=== PATIENT | female | born 1960 | race Caucasian/White ===

== ENCOUNTER 2016-11-07 06:58 | Inpatient (IN) | payer MEDICARE, MEDICAID ==
[~2016-11-07] VITALS: Ht 160 cm; Wt 90.8 kg
[~2016-11-07 06:58] MED LIST: ADDERALL20 MG PO; BREO IH; DALIRESP500 MCG PO; KLONOPIN 1MG1 MG PO; LEVAQUIN 5500 MG/TA1 PO; NEURONTIN300 MG/CAP PO; PERCOCET 325 MG1 TAB PO; PREDNISONE20 MG PO; PRILOSEC 20MG20 MG PO; PROAIR HFA0.09 MG/AC IH; PROZAC40 MG PO; VALIUM 5MG T5 MG/TAB PO; VENTOLIN0.09 MG IH; ZOFRAN 4MG T4 MG/TAB PO
[2016-11-07 07:33] LABS: BASO % 0.4 % (0.0-2.0); EOS # 0.1 (0.0-0.7); EOS % 0.7 % (0-4.0); GRAN % 86.3 % (42.2-75.2); HEMOGLOBIN 12.3 g/dl (12.5-16.0); LYMPH # 0.4 (1.2-3.4); LYMPH % 5.4 % (20.0-51.0); MEAN CELL VOLUME 99 fl (80.0-100.0); MEAN CORPUSCULAR HEMOGLOBIN 34 pg (27.0-31.0); MEAN CORPUSCULAR HGB CONC 35 g/dl (33.0-37.0); MONO # 0.4 (0.1-0.6); MONO % 5.5 % (1.7-9.3); PLATELET COUNT 107 K/mm3 (130-400); RED BLOOD COUNT 3.58 M/mm3 (4.10-5.30); REDCELL DISTRIBUTION WIDTH-CV 13.4 % (11.5-14.5); WHITE BLOOD COUNT 6.9 K/mm3 (4.8-10.8)
[2016-11-07 07:45] LABS: HEMATOCRIT 35.4 % (37.0-47.0)
[2016-11-07 08:01] LABS: PH 5 (5-8); SQUAMOUS EPITHELIAL 0-2 /hpf; URINE APPEARANCE Hazy; URINE BACTERIA Rare /hpf; URINE BILIRUBIN Negative (NEGATIVE); URINE BLOOD 1+ (NEGATIVE); URINE COLOR Yellow; URINE GLUCOSE Negative (NEGATIVE); URINE KETONE Negative (NEGATIVE); URINE RBC None Seen /hpf; URINE UROBILINOGEN Negative (NEGATIVE)
[2016-11-07 08:04] LABS: B-TYPE NATRIURETIC PEPTIDE 573 pg/mL (0-125)
[2016-11-07 08:06] LABS: ADJUSTED CALCIUM 9.6 mg/dL (8.4-10.2); ALANINE AMINOTRANSFERASE 38 U/L (9-52); ALBUMIN 3.3 gm/dL (3.5-5.0); ALKALINE PHOSPHATASE 93 U/L (50-136); ANION GAP 9 mmol/L (7-16); BILIRUBIN,TOTAL 1.5 mg/dL (0.0-1.0); BLOOD UREA NITROGEN 40 mg/dL (7-17); CARBON DIOXIDE 32 mmol/L (22-30); CHLORIDE 90 mmol/L (98-107); CREATININE, serum 0.79 mg/dL (0.52-1.25); GLUCOSE 99 mg/dL (74-106); POTASSIUM 3.3 mmol/L (3.4-5.0); SODIUM 131 mmol/L (137-145); TOTAL PROTEIN 6.4 gm/dL (6.4-8.2)
[2016-11-07 08:27] LABS: LIPASE 26 U/L (23-300)
[2016-11-07 08:39] LABS: TROPONIN-I < 0.012 ng/mL (0.000-0.034)
[2016-11-07 10:41] VITALS: BP 97/49; PULSE 97; TEMP 97.8
[2016-11-07 11:09] LABS: PROLACTIN 11.7 ng/mL (3.0-18.6)
[2016-11-07 11:56] LABS: ARTERIAL BLD GAS O2 SATURATION 88.9 % (92-100); ARTERIAL BLD GAS TCO2 CT 36.5; ARTERIAL BLOOD GAS BASE EXCESS 8.2 (-2-2); ARTERIAL BLOOD GAS HCO3 34.8 meq/L (22-26); ARTERIAL BLOOD GAS PHT 7.41 C (7.35-7.45); ARTERIAL BLOOD GAS PO2 55.6 mmHg (80-100); ARTERIAL BLOOD GAS PO2T 55.6 (80-100); ARTERIAL BLOOD GAS pH 7.41 (7.35-7.45); OXYHEMOGLOBIN 82.5 %
[2016-11-07 11:57] LABS: ATS? YES
[2016-11-07] MEDS ORDERED: LASIX 40MG TABL40 MG PO (12:31)
[2016-11-07] MEDS ORDERED: ZOCOR 10MG10 MG PO (12:31)
[2016-11-07] MEDS ORDERED: K-DUR 10 MEQ T10 MEQ PO (12:32)
[2016-11-07 16:24] VITALS: BP 94/40; PULSE 99; TEMP 97.9
[2016-11-07 16:31] LABS: AMPHETAMINE URINE NEGATIVE; BARBITURATES URINE NEGATIVE; BENZODIAZEPINES URINE POSITIVE; BUPRENORPHINE URINE NEGATIVE; METHADONE URINE NEGATIVE; OPIATES URINE NEGATIVE; OXYCODONE URINE POSITIVE; PHENCYCLIDINE URINE NEGATIVE; PROPOXYPHENE URINE NEGATIVE; THC CANNABINOIDS URINE NEGATIVE
[2016-11-07 20:43] VITALS: BP 94/50; PULSE 94; TEMP 97.8
[2016-11-08] VITALS (7 sets, daily range): BP systolic 93–114; BP diastolic 34–66; PULSE 82–103; TEMP 97.7–98.8
[2016-11-08 07:01] LABS: BASO % 0.3 % (0.0-2.0); EOS % 0.3 % (0-4.0); GRAN # 5.7 (1.4-6.5); GRAN % 88.3 % (42.2-75.2); LYMPH # 0.3 (1.2-3.4); LYMPH % 5.2 % (20.0-51.0); MEAN CELL VOLUME 102 fl (80.0-100.0); MEAN CORPUSCULAR HGB CONC 34 g/dl (33.0-37.0); MEAN PLATELET VOLUME 10.2 fl (7.4-10.4); MONO # 0.3 (0.1-0.6); MONO % 5.1 % (1.7-9.3); PLATELET COUNT 106 K/mm3 (130-400); RED BLOOD COUNT 3.15 M/mm3 (4.10-5.30); REDCELL DISTRIBUTION WIDTH-CV 13.9 % (11.5-14.5); WHITE BLOOD COUNT 6.5 K/mm3 (4.8-10.8)
[2016-11-08 07:14] LABS: HEMATOCRIT 32.1 % (37.0-47.0); HEMOGLOBIN 10.9 g/dl (12.5-16.0); MEAN CORPUSCULAR HEMOGLOBIN 35 pg (27.0-31.0)
[2016-11-08 07:15] LABS: ANION GAP 9 mmol/L (7-16); BLOOD UREA NITROGEN 20 mg/dL (7-17); CALCIUM 8.6 mg/dL (8.4-10.2); CARBON DIOXIDE 34 mmol/L (22-30); CHLORIDE 96 mmol/L (98-107); CREATININE, serum 0.58 mg/dL (0.52-1.25); GLUCOSE 98 mg/dL (74-106); MAGNESIUM 1.9 mg/dL (1.6-2.3); SODIUM 139 mmol/L (137-145)
[2016-11-08 07:33] LABS: POTASSIUM 2.5 mmol/L (3.4-5.0); TROPONIN-I < 0.012 ng/mL (0.000-0.034)
[2016-11-09 03:29] VITALS: BP 92/63; PULSE 96; TEMP 98.9
[2016-11-09 07:37] VITALS: BP 99/59; PULSE 94; TEMP 97.9
[2016-11-09 07:37] LABS: BASO % 0.2 % (0.0-2.0); EOS % 0.5 % (0-4.0); GRAN # 5.1 (1.4-6.5); GRAN % 84.8 % (42.2-75.2); LYMPH # 0.4 (1.2-3.4); LYMPH % 6.9 % (20.0-51.0); MEAN CELL VOLUME 105 fl (80.0-100.0); MEAN CORPUSCULAR HGB CONC 33 g/dl (33.0-37.0); MEAN PLATELET VOLUME 9.9 fl (7.4-10.4); MONO # 0.4 (0.1-0.6); MONO % 6.3 % (1.7-9.3); PLATELET COUNT 107 K/mm3 (130-400); RED BLOOD COUNT 2.93 M/mm3 (4.10-5.30); REDCELL DISTRIBUTION WIDTH-CV 14.6 % (11.5-14.5); WHITE BLOOD COUNT 6.1 K/mm3 (4.8-10.8)
[2016-11-09 07:50] LABS: HEMATOCRIT 30.7 % (37.0-47.0); HEMOGLOBIN 10.1 g/dl (12.5-16.0); MEAN CORPUSCULAR HEMOGLOBIN 34 pg (27.0-31.0)
[2016-11-09 07:59] LABS: CALCIUM 8.7 mg/dL (8.4-10.2); CREATININE, serum 0.59 mg/dL (0.52-1.25); MAGNESIUM 1.9 mg/dL (1.6-2.3); POTASSIUM 4.3 mmol/L (3.4-5.0)
[2016-11-09 11:27] VITALS: BP 110/52; PULSE 91
[2016-11-09 15:08] VITALS: BP 110/43; PULSE 101; TEMP 98.4
[2016-11-09 20:13] VITALS: BP 147/90; PULSE 98; TEMP 100
[2016-11-09 23:40] VITALS: BP 138/88; PULSE 97; TEMP 99.6
[2016-11-10 03:20] VITALS: BP 128/57; PULSE 97; TEMP 99.4
[2016-11-10 08:15] VITALS: BP 122/69; PULSE 101; TEMP 99.9
[2016-11-10] MEDS ORDERED: MACROBID 1100 MG/CAP PO (10:58)
[2016-11-10] MEDS ORDERED: CEFTIN500 MG PO (11:03)
[2016-11-10] MEDS ORDERED: KLOR-CON M2020 MEQ PO (11:13)
[2016-11-10 13:03] VITALS: BP 98/46; PULSE 102
[2016-11-10 13:13] VITALS: TEMP 99.3
== END 2016-11-10 16:30 | disposition home or self-care (01) | DRG 918 ==
LOC: COL.ER 06:58 → MEDICAL 08:06
PROVIDERS: Emergency Medicine; Nurse Practitioner Family
DX: T40.2X1A Poisoning by other opioids, accidental (unintentional), initial encounter (principal); C79.31 Secondary malignant neoplasm of brain; C34.12 Malignant neoplasm of upper lobe, left bronchus or lung; N39.0 Urinary tract infection, site not specified; L03.116 Cellulitis of left lower limb; L03.115 Cellulitis of right lower limb; J98.11 Atelectasis; T42.4X1A Poisoning by benzodiazepines, accidental (unintentional), initial encounter; R41.0 Disorientation, unspecified; B96.20 Unspecified Escherichia coli [E. coli] as the cause of diseases classified elsewhere; J44.9 Chronic obstructive pulmonary disease, unspecified; I10 Essential (primary) hypertension; F17.210 Nicotine dependence, cigarettes, uncomplicated; G89.29 Other chronic pain; E87.6 Hypokalemia
CPT/HCPCS: 99222-AI; 99223-AI; 99232-AI; 99233-AI; 99239; A9284; C9113; G0378; J0696; J1650; J3480; J7030; Q9967

== ENCOUNTER → 2016-11-24 | Outpatient (CLI) | payer MEDICARE, MEDICAID ==
[~2016-11-24] MED LIST changes: +CEFTIN500 MG PO; +K-DUR 10 MEQ T10 MEQ PO; +KLOR-CON M2020 MEQ PO; +LASIX 40MG TABL40 MG PO; +MACROBID 1100 MG/CAP PO; +ZOCOR 10MG10 MG PO
== END ==
LOC: ZCOL.LAB 16:00
DX: Z02.89 Encounter for other administrative examinations (principal)

== ENCOUNTER 2017-02-28 23:58 | Emergency (ER) | payer MEDICARE, MEDICAID ==
[2017-03-01 00:01] VITALS: BP 97/61; PULSE 103; TEMP 98.7
== END 2017-03-01 ==
LOC: COL.ER 23:58
DX: R03.1 Nonspecific low blood-pressure reading (principal)

== ENCOUNTER → 2017-04-20 | Outpatient (CLI) | payer MEDICARE, MEDICAID | LOC: COL.VAS 11:15 | DX: Z01.89 Encounter for other specified special examinations (principal) ==

== ENCOUNTER 2017-05-04 14:08 | Emergency (ER) | payer MEDICARE, MEDICAID ==
[2017-05-04 14:12] VITALS: TEMP 98.7
[2017-05-04 14:53] LABS: BASO % 0.5 % (0.0-2.0); EOS # 0.1 (0.0-0.7); EOS % 2.4 % (0-4.0); GRAN # 2.6 (1.4-6.5); GRAN % 62.6 % (42.2-75.2); LYMPH # 1.1 (1.2-3.4); LYMPH % 25.2 % (20.0-51.0); MEAN CELL VOLUME 101 fl (80.0-100.0); MEAN CORPUSCULAR HGB CONC 32 g/dl (33.0-37.0); MEAN PLATELET VOLUME 9.5 fl (7.4-10.4); MONO # 0.4 (0.1-0.6); MONO % 9.1 % (1.7-9.3); PLATELET COUNT 213 K/mm3 (130-400); RED BLOOD COUNT 3.27 M/mm3 (4.10-5.30); REDCELL DISTRIBUTION WIDTH-CV 13.7 % (11.5-14.5); WHITE BLOOD COUNT 4.2 K/mm3 (4.8-10.8)
[2017-05-04 14:55] LABS: HEMATOCRIT 33.1 % (37.0-47.0); HEMOGLOBIN 10.7 g/dl (12.5-16.0); MEAN CORPUSCULAR HEMOGLOBIN 33 pg (27.0-31.0)
[2017-05-04 15:09] LABS: ADJUSTED CALCIUM 9.8 mg/dL (8.4-10.2); ALANINE AMINOTRANSFERASE 23 U/L (9-52); ALBUMIN 2.9 gm/dL (3.5-5.0); ALKALINE PHOSPHATASE 76 U/L (50-136); ANION GAP 4 mmol/L (7-16); BILIRUBIN,TOTAL 0.5 mg/dL (0.0-1.0); BLOOD UREA NITROGEN 5 mg/dL (7-17); CALCIUM 8.9 mg/dL (8.4-10.2); CARBON DIOXIDE 34 mmol/L (22-30); CHLORIDE 101 mmol/L (98-107); CREATININE, serum 0.54 mg/dL (0.52-1.25); GLUCOSE 83 mg/dL (74-106); POTASSIUM 3.4 mmol/L (3.4-5.0); SODIUM 139 mmol/L (137-145); TOTAL PROTEIN 5.6 gm/dL (6.4-8.2)
[2017-05-04 15:17] LABS: B-TYPE NATRIURETIC PEPTIDE 284 pg/mL (0-125)
[2017-05-04 15:22] LABS: TROPONIN-I < 0.012 ng/mL (0.000-0.034)
[2017-05-04 15:54] VITALS: BP 103/66; PULSE 87
== END 2017-05-04 16:01 | disposition home or self-care (01) ==
LOC: COL.ER 14:08
PROVIDERS: Emergency Medicine
DX: R09.02 Hypoxemia (principal); Z99.81 Dependence on supplemental oxygen; J44.9 Chronic obstructive pulmonary disease, unspecified; F17.200 Nicotine dependence, unspecified, uncomplicated; R53.83 Other fatigue; Z85.9 Personal history of malignant neoplasm, unspecified
CPT/HCPCS: J1644

== ENCOUNTER → 2017-05-10 | Outpatient (CLI) | payer MEDICARE, MEDICAID ==
[2017-05-10 05:00] LABS: BASO % 0.4 % (0.0-2.0); EOS % 0.2 % (0-4.0); GRAN # 2.8 (1.4-6.5); GRAN % 61.4 % (42.2-75.2); LYMPH # 1.2 (1.2-3.4); LYMPH % 25.5 % (20.0-51.0); MEAN CELL VOLUME 101 fl (80.0-100.0); MEAN CORPUSCULAR HGB CONC 33 g/dl (33.0-37.0); MONO # 0.6 (0.1-0.6); MONO % 12.3 % (1.7-9.3); PLATELET COUNT 215 K/mm3 (130-400); RED BLOOD COUNT 3.22 M/mm3 (4.10-5.30); REDCELL DISTRIBUTION WIDTH-CV 13.4 % (11.5-14.5); WHITE BLOOD COUNT 4.6 K/mm3 (4.8-10.8)
[2017-05-10 05:01] LABS: HEMATOCRIT 32.5 % (37.0-47.0); HEMOGLOBIN 10.6 g/dl (12.5-16.0); MEAN CORPUSCULAR HEMOGLOBIN 33 pg (27.0-31.0)
[2017-05-10 05:10] LABS: ALBUMIN 2.8 gm/dL (3.5-5.0); BILIRUBIN,TOTAL 0.4 mg/dL (0.0-1.0); CREATININE, serum 0.6 mg/dL (0.52-1.25); POTASSIUM 3.8 mmol/L (3.4-5.0)
== END ==
LOC: ZCOL.LAB 03:45
PROVIDERS: Internal Medicine
DX: E78.2 Mixed hyperlipidemia (principal); A04.9 Bacterial intestinal infection, unspecified; Z85.118 Personal history of other malignant neoplasm of bronchus and lung

== ENCOUNTER → 2017-05-10 | Outpatient (CLI) | payer MEDICARE, MEDICAID | LOC: COL.LAB 16:29 | DX: Z01.89 Encounter for other specified special examinations (principal) ==

== ENCOUNTER → 2017-05-23 | Outpatient (REF) | LOC: ZCOL.LAB 07:12 | DX: Z01.89 Encounter for other specified special examinations (principal) ==

== ENCOUNTER → 2017-06-05 | Outpatient (CLI) | payer MEDICARE, MEDICAID ==
[2017-06-05 12:01] LABS: BASO % 0.7 % (0.0-2.0); EOS # 0.1 (0.0-0.7); EOS % 1.3 % (0-4.0); GRAN # 3.6 (1.4-6.5); GRAN % 64.8 % (42.2-75.2); HEMATOCRIT 37.4 % (37.0-47.0); LYMPH # 1.3 (1.2-3.4); LYMPH % 22.9 % (20.0-51.0); MEAN CELL VOLUME 105 fl (80.0-100.0); MEAN CORPUSCULAR HEMOGLOBIN 33 pg (27.0-31.0); MEAN CORPUSCULAR HGB CONC 32 g/dl (33.0-37.0); MEAN PLATELET VOLUME 9.6 fl (7.4-10.4); MONO # 0.6 (0.1-0.6); MONO % 9.9 % (1.7-9.3); PLATELET COUNT 234 K/mm3 (130-400); RED BLOOD COUNT 3.56 M/mm3 (4.10-5.30); WHITE BLOOD COUNT 5.6 K/mm3 (4.8-10.8)
[2017-06-05 12:10] LABS: HEMOGLOBIN 11.9 g/dl (12.5-16.0)
[2017-06-05 12:32] LABS: ADJUSTED CALCIUM 9.8 mg/dL (8.4-10.2); ALBUMIN 3.3 gm/dL (3.5-5.0); BILIRUBIN,TOTAL 0.3 mg/dL (0.0-1.0); CALCIUM 9.2 mg/dL (8.4-10.2); CREATININE, serum 0.69 mg/dL (0.52-1.25); POTASSIUM 3.5 mmol/L (3.4-5.0); TOTAL PROTEIN 6.3 gm/dL (6.4-8.2)
== END ==
LOC: COL.LAB 10:28
PROVIDERS: Internal Medicine
DX: Z86.2 Personal history of diseases of the blood and blood-forming organs and certain disorders involving the immune mechanism (principal); Z93.1 Gastrostomy status

== ENCOUNTER → 2017-06-17 | Outpatient (CLI) | payer MEDICARE, MEDICAID ==
[2017-06-17 02:03] LABS: BASO % 0.7 % (0.0-2.0); COLLECTION METHOD CLEAN CATCH; EOS # 0.2 (0.0-0.7); EOS % 4.2 % (0-4.0); GRAN # 2.3 (1.4-6.5); GRAN % 56.1 % (42.2-75.2); HEMATOCRIT 33.3 % (37.0-47.0); HEMOGLOBIN 10.8 g/dl (12.5-16.0); LYMPH # 0.9 (1.2-3.4); LYMPH % 23.2 % (20.0-51.0); MEAN CELL VOLUME 103 fl (80.0-100.0); MEAN CORPUSCULAR HEMOGLOBIN 33 pg (27.0-31.0); MEAN CORPUSCULAR HGB CONC 32 g/dl (33.0-37.0); MEAN PLATELET VOLUME 9.9 fl (7.4-10.4); MONO # 0.6 (0.1-0.6); MONO % 15.6 % (1.7-9.3); PLATELET COUNT 215 K/mm3 (130-400); RED BLOOD COUNT 3.25 M/mm3 (4.10-5.30); WHITE BLOOD COUNT 4.1 K/mm3 (4.8-10.8)
[2017-06-17 02:10] LABS: PH 6 (5-8); SQUAMOUS EPITHELIAL 0-2 /hpf; URINE APPEARANCE Clear; URINE BACTERIA Rare /hpf; URINE BILIRUBIN Negative (NEGATIVE); URINE BLOOD Negative (NEGATIVE); URINE COLOR Yellow; URINE GLUCOSE Negative (NEGATIVE); URINE KETONE Negative (NEGATIVE); URINE LEUKOCYTE ESTERASE Negative (NEGATIVE); URINE PROTEIN(semi-quant) Negative (NEGATIVE); URINE RBC None Seen /hpf; URINE UROBILINOGEN Negative (NEGATIVE); URINE WBC 0-2 /hpf
== END ==
LOC: ZCOL.LAB 01:25
PROVIDERS: Internal Medicine
DX: N39.0 Urinary tract infection, site not specified (principal); Z92.21 Personal history of antineoplastic chemotherapy

== ENCOUNTER → 2017-06-19 | Outpatient (CLI) | payer MEDICARE, MEDICAID ==
[2017-06-19 16:37] LABS: BASO # 0.1 (0.0-0.2); EOS # 0.2 (0.0-0.7); EOS % 3.1 % (0-4.0); GRAN # 2.8 (1.4-6.5); GRAN % 57.2 % (42.2-75.2); HEMATOCRIT 40.7 % (37.0-47.0); LYMPH # 1.3 (1.2-3.4); LYMPH % 26.7 % (20.0-51.0); MEAN CELL VOLUME 102 fl (80.0-100.0); MEAN CORPUSCULAR HEMOGLOBIN 33 pg (27.0-31.0); MEAN CORPUSCULAR HGB CONC 32 g/dl (33.0-37.0); MEAN PLATELET VOLUME 9.7 fl (7.4-10.4); MONO # 0.6 (0.1-0.6); MONO % 11.6 % (1.7-9.3); PLATELET COUNT 265 K/mm3 (130-400); WHITE BLOOD COUNT 4.8 K/mm3 (4.8-10.8)
[2017-06-19 16:38] LABS: HEMOGLOBIN 13.1 g/dl (12.5-16.0)
[2017-06-19 16:46] LABS: ADJUSTED CALCIUM 10.2 mg/dL (8.4-10.2); ALBUMIN 3.7 gm/dL (3.5-5.0); BILIRUBIN,TOTAL 0.5 mg/dL (0.0-1.0); CREATININE, serum 0.65 mg/dL (0.52-1.25); POTASSIUM 3.5 mmol/L (3.4-5.0); TOTAL PROTEIN 6.5 gm/dL (6.4-8.2)
[2017-06-19 17:15] LABS: THYROID STIMULATING HORMONE 0.615 uIU/mL (0.465-4.680)
== END ==
LOC: COL.LAB 15:36
PROVIDERS: Internal Medicine
DX: C34.12 Malignant neoplasm of upper lobe, left bronchus or lung (principal)

== ENCOUNTER → 2017-07-03 | Outpatient (CLI) | payer MEDICARE, MEDICAID ==
[2017-07-03 09:53] LABS: BASO % 1.1 % (0.0-2.0); EOS # 0.1 (0.0-0.7); EOS % 4.9 % (0-4.0); GRAN # 1.1 (1.4-6.5); GRAN % 42.5 % (42.2-75.2); LYMPH % 37.2 % (20.0-51.0); MEAN CELL VOLUME 102 fl (80.0-100.0); MEAN CORPUSCULAR HGB CONC 32 g/dl (33.0-37.0); MEAN PLATELET VOLUME 10.2 fl (7.4-10.4); MONO # 0.4 (0.1-0.6); MONO % 13.9 % (1.7-9.3); PLATELET COUNT 216 K/mm3 (130-400); RED BLOOD COUNT 3.12 M/mm3 (4.10-5.30); WHITE BLOOD COUNT 2.7 K/mm3 (4.8-10.8)
[2017-07-03 09:56] LABS: HEMATOCRIT 31.9 % (37.0-47.0); HEMOGLOBIN 10.3 g/dl (12.5-16.0); MEAN CORPUSCULAR HEMOGLOBIN 33 pg (27.0-31.0)
[2017-07-03 10:24] LABS: ALBUMIN 2.4 gm/dL (3.5-5.0); BILIRUBIN,TOTAL 0.3 mg/dL (0.0-1.0); CALCIUM 8.7 mg/dL (8.4-10.2); CREATININE, serum 0.6 mg/dL (0.52-1.25); POTASSIUM 3.4 mmol/L (3.4-5.0); TOTAL PROTEIN 4.7 gm/dL (6.4-8.2)
== END ==
LOC: ZCOL.LAB 09:43
PROVIDERS: Internal Medicine
DX: E78.2 Mixed hyperlipidemia (principal)

== ENCOUNTER → 2017-07-17 | Outpatient (CLI) | payer MEDICARE, MEDICAID ==
[2017-07-17 07:40] LABS: BASO # 0.1 (0.0-0.2); BASO % 1.2 % (0.0-2.0); EOS # 0.2 (0.0-0.7); GRAN # 2.2 (1.4-6.5); HEMATOCRIT 34.2 % (37.0-47.0); HEMOGLOBIN 10.9 g/dl (12.5-16.0); LYMPH # 1.3 (1.2-3.4); LYMPH % 30.5 % (20.0-51.0); MEAN CELL VOLUME 103 fl (80.0-100.0); MEAN CORPUSCULAR HEMOGLOBIN 33 pg (27.0-31.0); MEAN CORPUSCULAR HGB CONC 32 g/dl (33.0-37.0); MONO # 0.5 (0.1-0.6); MONO % 12.1 % (1.7-9.3); PLATELET COUNT 237 K/mm3 (130-400); RED BLOOD COUNT 3.32 M/mm3 (4.10-5.30); WHITE BLOOD COUNT 4.2 K/mm3 (4.8-10.8)
[2017-07-17 08:15] LABS: ADJUSTED CALCIUM 10.3 mg/dL (8.4-10.2); ALBUMIN 2.8 gm/dL (3.5-5.0); BILIRUBIN,TOTAL 0.3 mg/dL (0.0-1.0); CALCIUM 9.3 mg/dL (8.4-10.2); CREATININE, serum 0.69 mg/dL (0.52-1.25); POTASSIUM 4.1 mmol/L (3.4-5.0); TOTAL PROTEIN 5.3 gm/dL (6.4-8.2)
[2017-07-17 08:44] LABS: THYROID STIMULATING HORMONE 0.671 uIU/mL (0.465-4.680)
== END ==
LOC: ZCOL.LAB 06:39
PROVIDERS: Internal Medicine
DX: Z92.21 Personal history of antineoplastic chemotherapy (principal); E78.2 Mixed hyperlipidemia; Z92.3 Personal history of irradiation; F17.210 Nicotine dependence, cigarettes, uncomplicated; Z88.4 Allergy status to anesthetic agent; Z88.2 Allergy status to sulfonamides

== ENCOUNTER → 2017-09-05 | Outpatient (REF) ==
[~2017-09-05] MED LIST changes: +FENTANYL 25 MCG TD; +MULTI VITAMINS1 TAB PO; +PHENERGAN 25 TA25 MG PO; +REMERON30 MG; +ZANTAC 150MG T150 MG PO
[2017-09-05 11:54] LABS: ALBUMIN 3.2 gm/dL (3.5-5.0); BILIRUBIN,TOTAL 0.2 mg/dL (0.0-1.0); CALCIUM 9.1 mg/dL (8.4-10.2); CHOLESTEROL RISK RATIO 3.8; CREATININE, serum 0.62 mg/dL (0.52-1.25); POTASSIUM 3.9 mmol/L (3.4-5.0); TOTAL PROTEIN 5.6 gm/dL (6.4-8.2)
[2017-09-05 11:55] LABS: BASO % 0.9 % (0.0-2.0); EOS # 0.1 (0.0-0.7); EOS % 1.6 % (0-4.0); GRAN # 2.9 (1.4-6.5); GRAN % 64.1 % (42.2-75.2); LYMPH # 1.1 (1.2-3.4); LYMPH % 23.4 % (20.0-51.0); MEAN CELL VOLUME 103 fl (80.0-100.0); MEAN CORPUSCULAR HGB CONC 33 g/dl (33.0-37.0); MEAN PLATELET VOLUME 9.5 fl (7.4-10.4); MONO # 0.4 (0.1-0.6); MONO % 9.6 % (1.7-9.3); PLATELET COUNT 321 K/mm3 (130-400); RED BLOOD COUNT 2.92 M/mm3 (4.10-5.30); REDCELL DISTRIBUTION WIDTH-CV 14.8 % (11.5-14.5)
[2017-09-05 11:59] LABS: HEMOGLOBIN 9.9 g/dl (12.5-16.0); MEAN CORPUSCULAR HEMOGLOBIN 34 pg (27.0-31.0)
== END ==
LOC: ZCOL.LAB 11:32
PROVIDERS: Internal Medicine
DX: E78.2 Mixed hyperlipidemia (principal); M62.82 Rhabdomyolysis; E87.6 Hypokalemia; J44.9 Chronic obstructive pulmonary disease, unspecified

== ENCOUNTER → 2017-09-14 | Outpatient (CLI) | payer MEDICARE, MEDICAID | LOC: ZCOL.LAB 16:50 | DX: J11.1 Influenza due to unidentified influenza virus with other respiratory manifestations (principal) ==

== ENCOUNTER → 2017-09-29 | Outpatient (REF) ==
[2017-09-29 14:32] LABS: BASO # 0.1 (0.0-0.2); BASO % 0.9 % (0.0-2.0); EOS # 0.1 (0.0-0.7); EOS % 1.1 % (0-4.0); GRAN # 3.6 (1.4-6.5); GRAN % 62.8 % (42.2-75.2); LYMPH # 1.3 (1.2-3.4); LYMPH % 23.7 % (20.0-51.0); MEAN CELL VOLUME 100 fl (80.0-100.0); MEAN CORPUSCULAR HGB CONC 33 g/dl (33.0-37.0); MEAN PLATELET VOLUME 9.8 fl (7.4-10.4); MONO # 0.6 (0.1-0.6); MONO % 11.1 % (1.7-9.3); PLATELET COUNT 344 K/mm3 (130-400); RED BLOOD COUNT 3.51 M/mm3 (4.10-5.30); REDCELL DISTRIBUTION WIDTH-CV 13.4 % (11.5-14.5)
[2017-09-29 14:33] LABS: HEMATOCRIT 35.1 % (37.0-47.0); HEMOGLOBIN 11.5 g/dl (12.5-16.0); MEAN CORPUSCULAR HEMOGLOBIN 33 pg (27.0-31.0)
== END ==
LOC: ZCOL.LAB 14:29
PROVIDERS: Internal Medicine
DX: Z01.89 Encounter for other specified special examinations (principal)

== ENCOUNTER → 2017-10-02 | Outpatient (REF) ==
[2017-10-02 07:09] LABS: BILIRUBIN,TOTAL 0.2 mg/dL (0.0-1.0); CALCIUM 9.2 mg/dL (8.4-10.2); CREATININE, serum 0.64 mg/dL (0.52-1.25); POTASSIUM 4.7 mmol/L (3.4-5.0); TOTAL PROTEIN 5.9 gm/dL (6.4-8.2)
== END ==
LOC: ZCOL.LAB 06:52
PROVIDERS: Internal Medicine
DX: E87.6 Hypokalemia (principal)

== ENCOUNTER → 2017-10-11 | Outpatient (REF) ==
[2017-10-11 09:30] LABS: GRAN # 2.3 (1.4-6.5); GRAN % 55.7 % (42.2-75.2); LYMPH # 1.1 (1.2-3.4); LYMPH % 26.5 % (20.0-51.0); MEAN CELL VOLUME 99 fl (80.0-100.0); MEAN CORPUSCULAR HGB CONC 33 g/dl (33.0-37.0); MEAN PLATELET VOLUME 9.7 fl (7.4-10.4); MONO # 0.6 (0.1-0.6); MONO % 15.6 % (1.7-9.3); PLATELET COUNT 316 K/mm3 (130-400); RED BLOOD COUNT 3.23 M/mm3 (4.10-5.30); REDCELL DISTRIBUTION WIDTH-CV 13.5 % (11.5-14.5)
[2017-10-11 09:34] LABS: HEMATOCRIT 31.8 % (37.0-47.0); HEMOGLOBIN 10.5 g/dl (12.5-16.0); MEAN CORPUSCULAR HEMOGLOBIN 33 pg (27.0-31.0)
[2017-10-11 09:42] LABS: ALBUMIN 3.7 gm/dL (3.5-5.0); BILIRUBIN,TOTAL 0.3 mg/dL (0.0-1.0); CALCIUM 9.1 mg/dL (8.4-10.2); CREATININE, serum 0.73 mg/dL (0.52-1.25); TOTAL PROTEIN 7.3 gm/dL (6.4-8.2)
[2017-10-11 10:13] LABS: THYROID STIMULATING HORMONE 2.51 uIU/mL (0.465-4.680)
== END ==
LOC: ZCOL.LAB 09:06
PROVIDERS: Internal Medicine
DX: E87.6 Hypokalemia (principal); E03.9 Hypothyroidism, unspecified

== ENCOUNTER → 2017-10-17 | Outpatient (REF) ==
[2017-10-17 14:32] LABS: BASO % 0.7 % (0.0-2.0); EOS # 0.1 (0.0-0.7); GRAN # 4.1 (1.4-6.5); LYMPH # 1.5 (1.2-3.4); LYMPH % 23.9 % (20.0-51.0); MEAN CELL VOLUME 99 fl (80.0-100.0); MEAN CORPUSCULAR HGB CONC 32 g/dl (33.0-37.0); MEAN PLATELET VOLUME 9.6 fl (7.4-10.4); MONO # 0.4 (0.1-0.6); MONO % 7.2 % (1.7-9.3); PLATELET COUNT 357 K/mm3 (130-400); RED BLOOD COUNT 3.42 M/mm3 (4.10-5.30); REDCELL DISTRIBUTION WIDTH-CV 13.5 % (11.5-14.5)
[2017-10-17 14:39] LABS: MEAN CORPUSCULAR HEMOGLOBIN 32 pg (27.0-31.0)
[2017-10-17 14:40] LABS: ALBUMIN 3.7 gm/dL (3.5-5.0); BILIRUBIN,TOTAL 0.2 mg/dL (0.0-1.0); CALCIUM 9.4 mg/dL (8.4-10.2); CREATININE, serum 0.8 mg/dL (0.52-1.25); POTASSIUM 3.9 mmol/L (3.4-5.0); TOTAL PROTEIN 7.3 gm/dL (6.4-8.2)
[2017-10-17 15:10] LABS: THYROID STIMULATING HORMONE 1.04 uIU/mL (0.465-4.680)
== END ==
LOC: ZCOL.LAB 14:23
PROVIDERS: Internal Medicine
DX: E87.6 Hypokalemia (principal); E03.9 Hypothyroidism, unspecified; Z85.118 Personal history of other malignant neoplasm of bronchus and lung

== ENCOUNTER → 2017-10-26 | Outpatient (CLI) | payer MEDICARE, MEDICAID ==
[2017-10-26 20:03] LABS: BASO # 0.1 (0.0-0.2); BASO % 1.1 % (0.0-2.0); EOS # 0.1 (0.0-0.7); EOS % 1.1 % (0-4.0); GRAN # 2.5 (1.4-6.5); GRAN % 57.2 % (42.2-75.2); LYMPH # 1.3 (1.2-3.4); LYMPH % 28.8 % (20.0-51.0); MEAN CELL VOLUME 100 fl (80.0-100.0); MEAN CORPUSCULAR HGB CONC 32 g/dl (33.0-37.0); MONO # 0.5 (0.1-0.6); MONO % 11.6 % (1.7-9.3); PLATELET COUNT 246 K/mm3 (130-400); RED BLOOD COUNT 3.07 M/mm3 (4.10-5.30); REDCELL DISTRIBUTION WIDTH-CV 13.9 % (11.5-14.5)
[2017-10-26 20:04] LABS: HEMATOCRIT 30.6 % (37.0-47.0); HEMOGLOBIN 9.7 g/dl (12.5-16.0); MEAN CORPUSCULAR HEMOGLOBIN 32 pg (27.0-31.0)
[2017-10-26 20:13] LABS: BILIRUBIN,TOTAL 0.5 mg/dL (0.0-1.0); CALCIUM 8.9 mg/dL (8.4-10.2); CREATININE, serum 0.69 mg/dL (0.52-1.25); POTASSIUM 4.9 mmol/L (3.4-5.0)
== END ==
LOC: ZCOL.LAB 19:57
PROVIDERS: Internal Medicine
DX: Z85.118 Personal history of other malignant neoplasm of bronchus and lung (principal)

== ENCOUNTER → 2017-11-07 | Outpatient (CLI) | payer MEDICARE, MEDICAID ==
[2017-11-07 14:04] LABS: EOS # 0.2 (0.0-0.7); EOS % 3.9 % (0-4.0); GRAN # 1.9 (1.4-6.5); GRAN % 49.7 % (42.2-75.2); HEMATOCRIT 31.9 % (37.0-47.0); HEMOGLOBIN 10.2 g/dl (12.5-16.0); LYMPH # 1.3 (1.2-3.4); LYMPH % 33.8 % (20.0-51.0); MEAN CELL VOLUME 96 fl (80.0-100.0); MEAN CORPUSCULAR HEMOGLOBIN 31 pg (27.0-31.0); MEAN CORPUSCULAR HGB CONC 32 g/dl (33.0-37.0); MONO # 0.4 (0.1-0.6); MONO % 11.3 % (1.7-9.3); PLATELET COUNT 347 K/mm3 (130-400); RED BLOOD COUNT 3.31 M/mm3 (4.10-5.30); REDCELL DISTRIBUTION WIDTH-CV 13.7 % (11.5-14.5)
[2017-11-07 14:16] LABS: ALBUMIN 3.3 gm/dL (3.5-5.0); BILIRUBIN,TOTAL 0.2 mg/dL (0.0-1.0); CALCIUM 9.1 mg/dL (8.4-10.2); CREATININE, serum 0.64 mg/dL (0.52-1.25); POTASSIUM 4.3 mmol/L (3.4-5.0); TOTAL PROTEIN 6.5 gm/dL (6.4-8.2)
== END ==
LOC: ZCOL.LAB 12:55
PROVIDERS: Internal Medicine
DX: Z92.21 Personal history of antineoplastic chemotherapy (principal)

== ENCOUNTER → 2018-03-05 | Outpatient (REF) ==
[2018-03-05 12:34] LABS: BASO # 0.1 (0.0-0.2); EOS # 0.2 (0.0-0.7); EOS % 4.6 % (0-4.0); GRAN # 2.5 (1.4-6.5); GRAN % 52.9 % (42.2-75.2); HEMOGLOBIN 10.6 g/dl (12.5-16.0); LYMPH # 1.4 (1.2-3.4); LYMPH % 29.6 % (20.0-51.0); MEAN CELL VOLUME 96 fl (80.0-100.0); MEAN CORPUSCULAR HEMOGLOBIN 31 pg (27.0-31.0); MEAN CORPUSCULAR HGB CONC 32 g/dl (33.0-37.0); MEAN PLATELET VOLUME 9.3 fl (7.4-10.4); MONO # 0.6 (0.1-0.6); MONO % 11.7 % (1.7-9.3); PLATELET COUNT 228 K/mm3 (130-400); RED BLOOD COUNT 3.45 M/mm3 (4.10-5.30); REDCELL DISTRIBUTION WIDTH-CV 13.5 % (11.5-14.5)
[2018-03-05 12:37] LABS: HEMATOCRIT 33.1 % (37.0-47.0)
[2018-03-05 13:03] LABS: ALBUMIN 3.3 gm/dL (3.5-5.0); BILIRUBIN,TOTAL 0.3 mg/dL (0.0-1.0); CALCIUM 8.5 mg/dL (8.4-10.2); CREATININE, serum 0.64 mg/dL (0.52-1.25); POTASSIUM 3.9 mmol/L (3.4-5.0); TOTAL PROTEIN 6.1 gm/dL (6.4-8.2)
== END ==
LOC: ZCOL.LAB 12:26
PROVIDERS: Internal Medicine
DX: M62.81 Muscle weakness (generalized) (principal); R60.0 Localized edema

== ENCOUNTER → 2018-03-19 | Outpatient (CLI) | payer MEDICARE, MEDICAID | LOC: ZCOL.LAB 14:32 | DX: E78.2 Mixed hyperlipidemia (principal) ==

== ENCOUNTER → 2018-03-19 | Outpatient (CLI) | payer MEDICARE, MEDICAID | LOC: ZCOL.LAB 13:12 | DX: E78.2 Mixed hyperlipidemia (principal) ==

== ENCOUNTER → 2018-04-11 | Outpatient (CLI) | payer MEDICARE, MEDICAID | LOC: COL.RAD 07:48 | DX: C34.12 Malignant neoplasm of upper lobe, left bronchus or lung (principal); R91.8 Other nonspecific abnormal finding of lung field; J84.9 Interstitial pulmonary disease, unspecified; M79.89 Other specified soft tissue disorders; K76.9 Liver disease, unspecified; K83.8 Other specified diseases of biliary tract; Z90.49 Acquired absence of other specified parts of digestive tract | CPT/HCPCS: Q9967 ==

== ENCOUNTER → 2018-06-11 | Outpatient (REF) ==
[2018-06-11 11:42] LABS: CALCIUM 8.9 mg/dL (8.4-10.2); CREATININE, serum 0.63 mg/dL (0.52-1.25); POTASSIUM 4.2 mmol/L (3.4-5.0)
== END ==
LOC: ZCOL.LAB 11:24
PROVIDERS: Internal Medicine
DX: I25.10 Atherosclerotic heart disease of native coronary artery without angina pectoris (principal)

== ENCOUNTER 2018-06-23 17:26 | Inpatient (IN) | payer MEDICARE, MEDICAID ==
[~2018-06-23] VITALS: Ht 160 cm; Wt 69.5 kg
[2018-06-23 18:35] LABS: BASO % 0.4 % (0.0-2.0); EOS % 0.3 % (0-4.0); GRAN # 7.5 (1.4-6.5); GRAN % 76.1 % (42.2-75.2); HEMATOCRIT 37.8 % (37.0-47.0); HEMOGLOBIN 12.9 g/dl (12.5-16.0); LYMPH # 1.8 (1.2-3.4); LYMPH % 18.2 % (20.0-51.0); MEAN CELL VOLUME 94 fl (80.0-100.0); MEAN CORPUSCULAR HEMOGLOBIN 32 pg (27.0-31.0); MEAN CORPUSCULAR HGB CONC 34 g/dl (33.0-37.0); MEAN PLATELET VOLUME 8.6 fl (7.4-10.4); MONO # 0.4 (0.1-0.6); MONO % 4.4 % (1.7-9.3); PLATELET COUNT 256 K/mm3 (130-400); RED BLOOD COUNT 4.04 M/mm3 (4.10-5.30); REDCELL DISTRIBUTION WIDTH-CV 14.1 % (11.5-14.5)
[2018-06-23 18:48] LABS: CALCIUM 8.9 mg/dL (8.4-10.2); CREATININE, serum 0.9 mg/dL (0.52-1.25); POTASSIUM 4.5 mmol/L (3.4-5.0)
[2018-06-23] MEDS ORDERED: OXY IR5 MG PO (20:23)
[2018-06-23] MEDS ORDERED: TYLENOL 325MG325 MG PO (20:25)
[2018-06-23] MEDS ORDERED: MELATONIN5 M1 PO (20:26)
[2018-06-23] MEDS ORDERED: BENADRYL25 M2 PO (20:26)
[2018-06-23] MEDS ORDERED: ASPER-FLEX10% TOP (20:27)
[2018-06-23] MEDS ORDERED: BREO IH (20:28)
[2018-06-23] MEDS ORDERED: PHENERGAN 25 TA25 MG PO (20:28)
[2018-06-23] MEDS ORDERED: K-DUR20 MEQ PO (20:29)
[2018-06-23] MEDS ORDERED: KLONOPIN 1MG1 MG PO (20:29)
[2018-06-23] MEDS ORDERED: ZANTAC 150MG T150 MG PO (20:29)
[2018-06-23] MEDS ORDERED: PROZAC 20MG20 MG PO (20:29)
[2018-06-23] MEDS ORDERED: FENTANYL 50MCG TD (20:30)
[2018-06-23] MEDS ORDERED: LASIX 20MG TABL20 MG PO (20:30)
[2018-06-23] MEDS ORDERED: SYNTHROID0.1 MG/TAB PO (20:30)
[2018-06-23 20:56] LABS: PROTHROMBIN TIME 10.8 SECONDS (9.7-12.8)
[2018-06-23 22:46] VITALS: BP 111/60; PULSE 91; TEMP 98.4
[2018-06-23 23:26] LABS: COLLECTION METHOD CATHETER
[2018-06-23 23:32] LABS: PH 7 (5-8); SQUAMOUS EPITHELIAL None Seen /hpf; URINE APPEARANCE Clear; URINE BACTERIA None Seen /hpf; URINE BILIRUBIN Negative (NEGATIVE); URINE BLOOD Negative (NEGATIVE); URINE COLOR Yellow; URINE GLUCOSE Negative (NEGATIVE); URINE KETONE Negative (NEGATIVE); URINE LEUKOCYTE ESTERASE Negative (NEGATIVE); URINE NITRATE Negative (NEGATIVE); URINE PROTEIN(semi-quant) Negative (NEGATIVE); URINE UROBILINOGEN Negative (NEGATIVE)
[2018-06-24] VITALS (11 sets, daily range): BP systolic 89–146; BP diastolic 44–89; PULSE 81–111; TEMP 98.1–99
[2018-06-24 06:16] LABS: BASO % 0.3 % (0.0-2.0); EOS % 0.1 % (0-4.0); GRAN # 7.4 (1.4-6.5); GRAN % 79.3 % (42.2-75.2); HEMOGLOBIN 11.8 g/dl (12.5-16.0); LYMPH # 1.1 (1.2-3.4); LYMPH % 11.4 % (20.0-51.0); MEAN CELL VOLUME 94 fl (80.0-100.0); MEAN CORPUSCULAR HEMOGLOBIN 32 pg (27.0-31.0); MEAN CORPUSCULAR HGB CONC 34 g/dl (33.0-37.0); MEAN PLATELET VOLUME 9.1 fl (7.4-10.4); MONO # 0.8 (0.1-0.6); MONO % 8.4 % (1.7-9.3); PLATELET COUNT 237 K/mm3 (130-400); RED BLOOD COUNT 3.74 M/mm3 (4.10-5.30); REDCELL DISTRIBUTION WIDTH-CV 14.1 % (11.5-14.5)
[2018-06-24 06:29] LABS: ALBUMIN 3.4 gm/dL (3.5-5.0); BILIRUBIN,TOTAL 0.9 mg/dL (0.0-1.0); CREATININE, serum 0.66 mg/dL (0.52-1.25); POTASSIUM 4.1 mmol/L (3.4-5.0); TOTAL PROTEIN 6.3 gm/dL (6.4-8.2)
[2018-06-24 09:51] LABS: ARTERIAL BLD GAS O2 SATURATION 92.4 % (92-100); ARTERIAL BLD GAS TCO2 CT 35.2; ARTERIAL BLOOD GAS BASE EXCESS 7.7 (-2-2); ARTERIAL BLOOD GAS HCO3 33.6 meq/L (22-26); ARTERIAL BLOOD GAS PCO2 52.7 mmHg (35-45); ARTERIAL BLOOD GAS PO2 62.6 mmHg (80-100); ARTERIAL BLOOD GAS pH 7.42 (7.35-7.45)
[2018-06-25] VITALS (136 sets, daily range): BP systolic 73–102; BP diastolic 37–74; PULSE 76–105; TEMP 97.5–99.4; O2SAT 87–100
[2018-06-25 06:26] LABS: BASO % 0.2 % (0.0-2.0); GRAN # 8.8 (1.4-6.5); LYMPH # 0.6 (1.2-3.4); LYMPH % 6.2 % (20.0-51.0); MEAN CELL VOLUME 96 fl (80.0-100.0); MEAN CORPUSCULAR HGB CONC 34 g/dl (33.0-37.0); MEAN PLATELET VOLUME 9.2 fl (7.4-10.4); MONO # 0.6 (0.1-0.6); MONO % 5.9 % (1.7-9.3); PLATELET COUNT 167 K/mm3 (130-400); RED BLOOD COUNT 2.77 M/mm3 (4.10-5.30); REDCELL DISTRIBUTION WIDTH-CV 14.3 % (11.5-14.5)
[2018-06-25 06:31] LABS: MEAN CORPUSCULAR HEMOGLOBIN 32 pg (27.0-31.0)
[2018-06-25 06:32] LABS: HEMATOCRIT 26.6 % (37.0-47.0)
[2018-06-25 06:48] LABS: ALBUMIN 2.7 gm/dL (3.5-5.0); BILIRUBIN,TOTAL 0.4 mg/dL (0.0-1.0); CALCIUM 8.1 mg/dL (8.4-10.2); CREATININE, serum 0.6 mg/dL (0.52-1.25); TOTAL PROTEIN 5.2 gm/dL (6.4-8.2)
[2018-06-25 10:50] LABS: INR 1.2 (0.8-3.0); PROTHROMBIN TIME 14.1 SECONDS (9.7-12.8)
[2018-06-25 18:59] LABS: HEMATOCRIT 24.5 % (37.0-47.0); HEMOGLOBIN 8.3 g/dl (12.5-16.0)
[2018-06-26] VITALS (313 sets, daily range): BP systolic 85–116; BP diastolic 48–61; PULSE 72–85; TEMP 97.6–99.1; O2SAT 89–100
[2018-06-26 00:38] LABS: HEPATITIS B CORE AB,TOTAL Negative (()); HEPATITIS B SURFACE ANTIBODY <2.0 (()); HEPATITIS B SURFACE ANTIGEN Negative (Negative); HEPATITIS C VIRUS ANTIBODY Negative (Negative)
[2018-06-26 01:32] LABS: TRANSFERRIN 131 mg/dL (192-382)
[2018-06-26 06:07] LABS: BASO % 0.5 % (0.0-2.0); EOS # 0.1 (0.0-0.7); EOS % 1.1 % (0-4.0); GRAN # 5.1 (1.4-6.5); LYMPH # 0.9 (1.2-3.4); LYMPH % 12.9 % (20.0-51.0); MEAN CELL VOLUME 97 fl (80.0-100.0); MEAN CORPUSCULAR HGB CONC 33 g/dl (33.0-37.0); MEAN PLATELET VOLUME 9.2 fl (7.4-10.4); MONO # 0.5 (0.1-0.6); MONO % 8.2 % (1.7-9.3); PLATELET COUNT 148 K/mm3 (130-400); RED BLOOD COUNT 2.69 M/mm3 (4.10-5.30); REDCELL DISTRIBUTION WIDTH-CV 14.8 % (11.5-14.5)
[2018-06-26 06:11] LABS: HEMATOCRIT 26.1 % (37.0-47.0); HEMOGLOBIN 8.6 g/dl (12.5-16.0); MEAN CORPUSCULAR HEMOGLOBIN 32 pg (27.0-31.0)
[2018-06-26 06:25] LABS: ALBUMIN 2.5 gm/dL (3.5-5.0); BILIRUBIN,TOTAL 0.5 mg/dL (0.0-1.0); CREATININE, serum 0.6 mg/dL (0.52-1.25); MAGNESIUM 1.7 mg/dL (1.6-2.3); TOTAL PROTEIN 4.9 gm/dL (6.4-8.2)
[2018-06-27 03:20] VITALS: BP 103/57; PULSE 76; TEMP 99
[2018-06-27 08:20] VITALS: BP 108/69; PULSE 84; TEMP 99.1
[2018-06-27] MEDS ORDERED: IPRATROPIUM BROM3 M1 IH (11:01)
[2018-06-27] MEDS ORDERED: PERFOROMIS20 MCG/2 M IH (11:01)
[2018-06-27] MEDS ORDERED: FERROUSAL325 MG PO (11:02)
[2018-06-27] MEDS ORDERED: ASPI325T6 PO (11:02)
[2018-06-27] MEDS ORDERED: FENTANYL 50MCG TD (11:03)
[2018-06-27] MEDS ORDERED: OXY IR5 MG PO (11:03)
[2018-06-27] MEDS ORDERED: KLONOPIN 1MG1 MG PO (11:03)
[2018-06-27] MEDS ORDERED: GOOD NEIGH1200 MG/15 PO (11:05)
[2018-06-27 11:17] VITALS: BP 117/74; PULSE 88; TEMP 99.2
[2018-06-27 15:25] LABS: CERULOPLASMIN 24.7 mg/dL (())
[2018-06-27 16:10] VITALS: BP 117/74; PULSE 88; TEMP 99.2
[2018-06-27 21:06] LABS: ALPHA 1 ANTITRYPSIN TOTAL 199 mg/dL (())
[2018-06-29 11:14] LABS: ANTISMOOTH MUSCLE ANTIBODY Negative (Negative)
== END 2018-06-27 16:14 | DRG 481 ==
LOC: COL.ER 17:26 → SURG 20:13 → ICU 06-25 19:48 → SURG 06-26 15:50
PROVIDERS: Emergency Medicine; Internal Medicine; Internal Medicine Critical Care Medicine; Internal Medicine Gastroenterology; Nurse Practitioner Family; Orthopaedic Surgery Sports Medicine
PROC: 0QS6XZZ Reposition Right Upper Femur, External Approach (ICD-10-PCS; 2018-06-24)
PROC: 0QH636Z Insertion of Intramedullary Internal Fixation Device into Right Upper Femur, Percutaneous Approach (ICD-10-PCS; principal; 2018-06-24 16:00)
DX: S72.141A Displaced intertrochanteric fracture of right femur, initial encounter for closed fracture (principal); C34.02 Malignant neoplasm of left main bronchus; C79.31 Secondary malignant neoplasm of brain; E87.2 Acidosis; E87.1 Hypo-osmolality and hyponatremia; W18.30XA Fall on same level, unspecified, initial encounter; I10 Essential (primary) hypertension; J44.9 Chronic obstructive pulmonary disease, unspecified; E78.5 Hyperlipidemia, unspecified; M79.7 Fibromyalgia; E55.9 Vitamin D deficiency, unspecified; F17.210 Nicotine dependence, cigarettes, uncomplicated; F41.8 Other specified anxiety disorders; D64.9 Anemia, unspecified
CPT/HCPCS: 99222; 99222-AI; 99232-AI; 99233-AI; 99239; A9284; A9537; C1713; J0690; J1100; J1170; J1885; J2250; J2270; J2405; J2704; J3010; J7030; J7040; J7042; J7120; J7121; P9016; Q9967

== ENCOUNTER 2018-07-02 17:10 | Emergency (ER) | payer MEDICARE, MEDICAID ==
[~2018-07-02] VITALS: Ht 160 cm; Wt 58.2 kg
[~2018-07-02 17:10] MED LIST changes: +ASPER-FLEX10% TOP; +ASPI325T6 PO; +BENADRYL25 M2 PO; +FENTANYL 50MCG TD; +FERROUSAL325 MG PO; +GOOD NEIGH1200 MG/15 PO; +IPRATROPIUM BROM3 M1 IH; +K-DUR20 MEQ PO; +LASIX 20MG TABL20 MG PO; +MELATONIN5 M1 PO; +OXY IR5 MG PO; +PERFOROMIS20 MCG/2 M IH; +PROZAC 20MG20 MG PO; +SYNTHROID0.1 MG/TAB PO; +TYLENOL 325MG325 MG PO
[2018-07-02 17:12] VITALS: TEMP 98.9
[2018-07-02 19:30] VITALS: BP 110/77
[2018-07-02] MEDS ORDERED: NORCO 325 MG-51 TAB PO (20:00)
[2018-07-02 21:15] VITALS: PULSE 73
== END 2018-07-02 21:15 | disposition home or self-care (01) ==
LOC: COL.ER 17:10
DX: S52.501A Unspecified fracture of the lower end of right radius, initial encounter for closed fracture (principal); S70.01XA Contusion of right hip, initial encounter; S80.01XA Contusion of right knee, initial encounter; J44.9 Chronic obstructive pulmonary disease, unspecified; M79.7 Fibromyalgia; C34.90 Malignant neoplasm of unspecified part of unspecified bronchus or lung; C79.31 Secondary malignant neoplasm of brain; F17.210 Nicotine dependence, cigarettes, uncomplicated; Z79.82 Long term (current) use of aspirin; Z79.51 Long term (current) use of inhaled steroids; Z47.1 Aftercare following joint replacement surgery; W05.0XXA Fall from non-moving wheelchair, initial encounter; Y92.009 Unspecified place in unspecified non-institutional (private) residence as the place of occurrence of the external cause
CPT/HCPCS: J2405; J2550; J2704; J3010; J7030; Q4021

== ENCOUNTER → 2018-07-05 | Emergency (ER) | payer MEDICARE, MEDICAID ==
[~2018-07-05] VITALS: Ht 160 cm; Wt 59.1 kg
[~2018-07-05] MED LIST changes: +NORCO 325 MG-51 TAB PO
[2018-07-05 15:19] VITALS: TEMP 99
[2018-07-05 15:43] LABS: BASO % 0.3 % (0.0-2.0); EOS % 0.2 % (0-4.0); GRAN # 4.6 (1.4-6.5); HEMATOCRIT 25.5 % (37.0-47.0); HEMOGLOBIN 8.4 g/dl (12.5-16.0); LYMPH # 1.1 (1.2-3.4); LYMPH % 16.6 % (20.0-51.0); MEAN CELL VOLUME 97 fl (80.0-100.0); MEAN CORPUSCULAR HEMOGLOBIN 32 pg (27.0-31.0); MEAN CORPUSCULAR HGB CONC 33 g/dl (33.0-37.0); MEAN PLATELET VOLUME 9.2 fl (7.4-10.4); MONO # 0.7 (0.1-0.6); MONO % 10.4 % (1.7-9.3); PLATELET COUNT 352 K/mm3 (130-400); RED BLOOD COUNT 2.62 M/mm3 (4.10-5.30); REDCELL DISTRIBUTION WIDTH-CV 14.7 % (11.5-14.5)
[2018-07-05 15:56] LABS: ALANINE AMINOTRANSFERASE 29 U/L (9-52); ALKALINE PHOSPHATASE 111 U/L (50-136); ANION GAP 2 mmol/L (7-16); AST,SGOT 21 U/L (15-37); BILIRUBIN,TOTAL 0.6 mg/dL (0.0-1.0); BLOOD UREA NITROGEN 10 mg/dL (7-17); C-REACTIVE PROTEIN 5.6 mg/dL (0.0-0.9); CALCIUM 8.8 mg/dL (8.4-10.2); CARBON DIOXIDE 30 mmol/L (22-30); CHLORIDE 104 mmol/L (98-107); CREATINE KINASE 48 U/L (30-135); CREATININE, serum 0.75 mg/dL (0.52-1.25); GLUCOSE 104 mg/dL (74-106); POTASSIUM 3.8 mmol/L (3.4-5.0); SODIUM 136 mmol/L (137-145); TOTAL PROTEIN 5.6 gm/dL (6.4-8.2)
[2018-07-05 16:02] LABS: COLLECTION METHOD CATHETER
[2018-07-05 16:07] LABS: TROPONIN-I < 0.012 ng/mL (0.000-0.034)
[2018-07-05 16:12] LABS: HYALINE CAST >12 /lpf; MUCOUS Present /lpf; PH 5 (5-8); URINE APPEARANCE Hazy; URINE BACTERIA None Seen /hpf; URINE BILIRUBIN Negative (NEGATIVE); URINE BLOOD Negative (NEGATIVE); URINE COLOR Amber; URINE GLUCOSE Negative (NEGATIVE); URINE KETONE Negative (NEGATIVE); URINE LEUKOCYTE ESTERASE Negative (NEGATIVE); URINE NITRATE Negative (NEGATIVE); URINE PROTEIN(semi-quant) 1+ (NEGATIVE); URINE RBC 0-2 /hpf
[2018-07-05 16:51] VITALS: BP 91/53
[2018-07-05 18:18] VITALS: PULSE 85
== END ==
LOC: COL.ER 14:39
PROVIDERS: Emergency Medicine
DX: I95.9 Hypotension, unspecified (principal); I10 Essential (primary) hypertension; J44.9 Chronic obstructive pulmonary disease, unspecified; M79.7 Fibromyalgia; E03.9 Hypothyroidism, unspecified; F17.210 Nicotine dependence, cigarettes, uncomplicated; Z98.890 Other specified postprocedural states; Z85.118 Personal history of other malignant neoplasm of bronchus and lung; Z90.710 Acquired absence of both cervix and uterus; Z90.49 Acquired absence of other specified parts of digestive tract; Z85.841 Personal history of malignant neoplasm of brain
CPT/HCPCS: J7030

== ENCOUNTER 2018-07-23 19:59 | Inpatient (IN) | payer MEDICARE, MEDICAID ==
[~2018-07-23] VITALS: Ht 160 cm; Wt 66.1 kg
[~2018-07-23 19:59] MED LIST changes: +ASPERCREME85G TP; +ASPIRIN 32325 MG/TAB PO; +MELATONIN5 M1 SL; +NORCO 325 MG-101 TAB PO
[2018-07-23 20:41] LABS: EOS # 0.1 (0.0-0.7); GRAN # 2.5 (1.4-6.5); GRAN % 81.1 % (42.2-75.2); HEMOGLOBIN 10.6 g/dl (12.5-16.0); LYMPH # 0.4 (1.2-3.4); LYMPH % 12.9 % (20.0-51.0); MEAN CELL VOLUME 100 fl (80.0-100.0); MEAN CORPUSCULAR HEMOGLOBIN 32 pg (27.0-31.0); MEAN CORPUSCULAR HGB CONC 32 g/dl (33.0-37.0); MEAN PLATELET VOLUME 8.8 fl (7.4-10.4); MONO % 1.3 % (1.7-9.3); PLATELET COUNT 331 K/mm3 (130-400); RED BLOOD COUNT 3.32 M/mm3 (4.10-5.30); REDCELL DISTRIBUTION WIDTH-CV 15.9 % (11.5-14.5)
[2018-07-23 20:43] LABS: HEMATOCRIT 33.1 % (37.0-47.0)
[2018-07-23 20:54] LABS: ALANINE AMINOTRANSFERASE 16 U/L (9-52); ALBUMIN 3.3 gm/dL (3.5-5.0); ALKALINE PHOSPHATASE 175 U/L (50-136); ANION GAP 3 mmol/L (7-16); AST,SGOT 24 U/L (15-37); BILIRUBIN,TOTAL 0.6 mg/dL (0.0-1.0); BLOOD UREA NITROGEN 10 mg/dL (7-17); C-REACTIVE PROTEIN 3.6 mg/dL (0.0-0.9); CALCIUM 8.1 mg/dL (8.4-10.2); CARBON DIOXIDE 35 mmol/L (22-30); CHLORIDE 99 mmol/L (98-107); CREATININE, serum 0.89 mg/dL (0.52-1.25); GLUCOSE 149 mg/dL (74-106); POTASSIUM 3.7 mmol/L (3.4-5.0); SODIUM 137 mmol/L (137-145); TOTAL PROTEIN 6.2 gm/dL (6.4-8.2)
[2018-07-23 21:02] LABS: TROPONIN-I < 0.012 ng/mL (0.000-0.034)
[2018-07-23 21:18] LABS: ARTERIAL BLD GAS O2 SATURATION 91.2 % (92-100); ARTERIAL BLD GAS TCO2 CT 33.3; ARTERIAL BLOOD GAS BASE EXCESS 5.4 (-2-2); ARTERIAL BLOOD GAS HCO3 31.7 meq/L (22-26); ARTERIAL BLOOD GAS PCO2 54.5 mmHg (35-45); ARTERIAL BLOOD GAS PO2 69.9 mmHg (80-100); ARTERIAL BLOOD GAS pH 7.38 (7.35-7.45)
[2018-07-23] MEDS ORDERED: MELATONIN5 M1 PO (21:34)
[2018-07-23] MEDS ORDERED: FENTANYL 50MCG TD (21:35)
[2018-07-23 23:08] VITALS: BP 87/50; PULSE 87; TEMP 98.9
[2018-07-23] MEDS ORDERED: K-TAB20 PO (23:30)
[2018-07-23] MEDS ORDERED: TYLENOL 325MG325 MG PO (23:31)
[2018-07-23 23:32] LABS: ARTERIAL BLD GAS O2 SATURATION 91.2 % (92-100); ARTERIAL BLD GAS TCO2 CT 26.3; ARTERIAL BLOOD GAS BASE EXCESS -0.4 (-2-2); ARTERIAL BLOOD GAS PCO2 44.1 mmHg (35-45); ARTERIAL BLOOD GAS PO2 70.4 mmHg (80-100); ARTERIAL BLOOD GAS pH 7.37 (7.35-7.45)
[2018-07-23] MEDS ORDERED: GOOD NEIGH1200 MG/15 PO (23:43)
[2018-07-23 23:47] LABS: MAGNESIUM 1.4 mg/dL (1.6-2.3); PHOSPHOROUS 3.5 mg/dL (2.5-4.5)
[2018-07-23] MEDS ORDERED: DESYREL 50MG50 MG PO (23:47)
[2018-07-23] MEDS ORDERED: PROZAC 20MG20 MG PO (23:49)
[2018-07-23] MEDS ORDERED: LASIX 20MG TABL20 MG PO (23:49)
[2018-07-23] MEDS ORDERED: GERI-TUSSI100 MG/5 M PO (23:56)
[2018-07-24] VITALS (318 sets, daily range): BP systolic 80–122; BP diastolic 46–81; PULSE 73–93; TEMP 97.5–98.5; O2SAT 63–100
[2018-07-24 04:33] LABS: COLLECTION METHOD CATHETER
[2018-07-24 04:43] LABS: MUCOUS Present /lpf; PH 5 (5-8); URINE APPEARANCE Clear; URINE BACTERIA Rare /hpf; URINE BILIRUBIN Negative (NEGATIVE); URINE BLOOD Negative (NEGATIVE); URINE COLOR Yellow; URINE GLUCOSE Negative (NEGATIVE); URINE KETONE Negative (NEGATIVE); URINE LEUKOCYTE ESTERASE Negative (NEGATIVE); URINE NITRATE Negative (NEGATIVE); URINE PROTEIN(semi-quant) Negative (NEGATIVE); URINE RBC 0-2 /hpf; URINE UROBILINOGEN Negative (NEGATIVE)
[2018-07-24 06:10] LABS: BASO % 0.9 % (0.0-2.0); GRAN # 1.6 (1.4-6.5); LYMPH # 0.4 (1.2-3.4); LYMPH % 20.9 % (20.0-51.0); MEAN CELL VOLUME 99 fl (80.0-100.0); MEAN CORPUSCULAR HGB CONC 32 g/dl (33.0-37.0); MEAN PLATELET VOLUME 9.1 fl (7.4-10.4); MONO # 0.1 (0.1-0.6); MONO % 2.8 % (1.7-9.3); PLATELET COUNT 286 K/mm3 (130-400); RED BLOOD COUNT 2.96 M/mm3 (4.10-5.30); REDCELL DISTRIBUTION WIDTH-CV 15.2 % (11.5-14.5)
[2018-07-24 06:13] LABS: HEMATOCRIT 29.2 % (37.0-47.0); HEMOGLOBIN 9.4 g/dl (12.5-16.0); MEAN CORPUSCULAR HEMOGLOBIN 32 pg (27.0-31.0)
[2018-07-24 06:20] LABS: ALBUMIN 2.8 gm/dL (3.5-5.0); BILIRUBIN,TOTAL 0.3 mg/dL (0.0-1.0); CALCIUM 7.8 mg/dL (8.4-10.2); CREATININE, serum 0.78 mg/dL (0.52-1.25); POTASSIUM 3.5 mmol/L (3.4-5.0); TOTAL PROTEIN 5.5 gm/dL (6.4-8.2)
[2018-07-24 16:16] LABS: ARTERIAL BLD GAS O2 SATURATION 94.5 % (92-100); ARTERIAL BLD GAS TCO2 CT 30.9; ARTERIAL BLOOD GAS BASE EXCESS 4.5 (-2-2); ARTERIAL BLOOD GAS HCO3 29.5 meq/L (22-26); ARTERIAL BLOOD GAS PCO2 46.2 mmHg (35-45); ARTERIAL BLOOD GAS PO2 74.9 mmHg (80-100); ARTERIAL BLOOD GAS pH 7.42 (7.35-7.45)
[2018-07-24 16:58] LABS: CALCIUM 7.9 mg/dL (8.4-10.2); CREATININE, serum 0.65 mg/dL (0.52-1.25); MAGNESIUM 1.7 mg/dL (1.6-2.3); PHOSPHOROUS 2.5 mg/dL (2.5-4.5); POTASSIUM 3.3 mmol/L (3.4-5.0)
[2018-07-24 17:55] LABS: INR 1.3 (0.8-3.0); PROTHROMBIN TIME 14.7 SECONDS (9.7-12.8)
[2018-07-25] VITALS (345 sets, daily range): BP systolic 96–127; BP diastolic 56–79; PULSE 76–108; TEMP 97.8–98.8; O2SAT 70–100
[2018-07-25 04:07] LABS: MEAN CELL VOLUME 99 fl (80.0-100.0); MEAN CORPUSCULAR HGB CONC 32 g/dl (33.0-37.0); MEAN PLATELET VOLUME 9.2 fl (7.4-10.4); PLATELET COUNT 234 K/mm3 (130-400); RED BLOOD COUNT 2.59 M/mm3 (4.10-5.30); REDCELL DISTRIBUTION WIDTH-CV 15.5 % (11.5-14.5)
[2018-07-25 04:13] LABS: INR 1.4 (0.8-3.0); PROTHROMBIN TIME 15.9 SECONDS (9.7-12.8)
[2018-07-25 04:16] LABS: HEMATOCRIT 25.7 % (37.0-47.0); HEMOGLOBIN 8.3 g/dl (12.5-16.0); MEAN CORPUSCULAR HEMOGLOBIN 32 pg (27.0-31.0)
[2018-07-25 04:18] LABS: ALBUMIN 2.3 gm/dL (3.5-5.0); BILIRUBIN,TOTAL 0.4 mg/dL (0.0-1.0); CREATININE, serum 0.5 mg/dL (0.52-1.25); MAGNESIUM 1.4 mg/dL (1.6-2.3); PHOSPHOROUS 2.2 mg/dL (2.5-4.5); POTASSIUM 3.5 mmol/L (3.4-5.0); TOTAL PROTEIN 4.6 gm/dL (6.4-8.2)
[2018-07-25 04:40] LABS: BAND 8 % (0-10); LYMPHOCYTE 4 % (20.0-51.0); NEUTROPHILS 88 % (42.0-75.2)
[2018-07-25 04:41] LABS: ANISOCYTOSIS 1+; HYPOCHROMIA 1+; PLATELET ESTIMATE NORMAL (NORMAL); ROULEAUX 2+
[2018-07-25 04:42] LABS: HELMET CELLS 1+; OVALOCYTES 1+
[2018-07-25 04:51] LABS: ARTERIAL BLD GAS O2 SATURATION 94.7 % (92-100); ARTERIAL BLOOD GAS HCO3 30.5 meq/L (22-26); ARTERIAL BLOOD GAS PCO2 49.7 mmHg (35-45); ARTERIAL BLOOD GAS PO2 76.6 mmHg (80-100); ARTERIAL BLOOD GAS pH 7.41 (7.35-7.45)
[2018-07-25 13:46] LABS: PLEURAL FLUID COLOR AMBER
[2018-07-25 13:47] LABS: PLEURAL FLUID APPEARANCE CLOUDY; PLEURAL FLUID RBC 7000 /mm3 (0-0); PLEURAL FLUID WBC 288 /mm3
[2018-07-25 14:03] LABS: GLUCOSE,PLEURAL FLUID 104 mg/dL; TOTAL PROTEIN,PLEURAL FLUID 2.5 gm/dL
[2018-07-26 00:48] VITALS: BP 95/50; PULSE 100; TEMP 98.6
[2018-07-26 04:48] VITALS: BP 103/60; PULSE 92; TEMP 98.3
[2018-07-26 06:01] LABS: MEAN CELL VOLUME 98 fl (80.0-100.0); MEAN CORPUSCULAR HGB CONC 33 g/dl (33.0-37.0); MEAN PLATELET VOLUME 9.4 fl (7.4-10.4); PLATELET COUNT 271 K/mm3 (130-400); REDCELL DISTRIBUTION WIDTH-CV 15.9 % (11.5-14.5)
[2018-07-26 06:05] LABS: HEMATOCRIT 30.3 % (37.0-47.0); HEMOGLOBIN 9.9 g/dl (12.5-16.0); MEAN CORPUSCULAR HEMOGLOBIN 32 pg (27.0-31.0)
[2018-07-26 06:27] LABS: ALBUMIN 2.9 gm/dL (3.5-5.0); BILIRUBIN,TOTAL 0.5 mg/dL (0.0-1.0); CALCIUM 8.8 mg/dL (8.4-10.2); CREATININE, serum 0.61 mg/dL (0.52-1.25); MAGNESIUM 1.9 mg/dL (1.6-2.3); PHOSPHOROUS 2.5 mg/dL (2.5-4.5); POTASSIUM 3.8 mmol/L (3.4-5.0); TOTAL PROTEIN 5.6 gm/dL (6.4-8.2)
[2018-07-26 06:37] LABS: INR 1.3 (0.8-3.0); PROTHROMBIN TIME 15.3 SECONDS (9.7-12.8)
[2018-07-26 07:23] VITALS: BP 105/49; PULSE 96; TEMP 98.2
[2018-07-26 11:27] VITALS: BP 121/71; PULSE 98; TEMP 98.9
[2018-07-26 15:35] VITALS: BP 130/79; PULSE 111; TEMP 98.1
[2018-07-26 21:13] VITALS: BP 101/56; PULSE 103; TEMP 98.8
[2018-07-27 01:03] VITALS: BP 90/53; PULSE 96; TEMP 98.3
[2018-07-27 04:29] VITALS: BP 101/59; PULSE 99; TEMP 98.2
[2018-07-27 06:13] LABS: INR 1.4 (0.8-3.0); PROTHROMBIN TIME 15.9 SECONDS (9.7-12.8)
[2018-07-27 06:28] LABS: BILIRUBIN,TOTAL 0.6 mg/dL (0.0-1.0); CALCIUM 8.9 mg/dL (8.4-10.2); CREATININE, serum 0.65 mg/dL (0.52-1.25); POTASSIUM 3.9 mmol/L (3.4-5.0); TOTAL PROTEIN 5.4 gm/dL (6.4-8.2)
[2018-07-27 07:50] LABS: MEAN CELL VOLUME 97 fl (80.0-100.0); MEAN CORPUSCULAR HGB CONC 33 g/dl (33.0-37.0); MEAN PLATELET VOLUME 9.7 fl (7.4-10.4); PLATELET COUNT 246 K/mm3 (130-400); RED BLOOD COUNT 3.05 M/mm3 (4.10-5.30); REDCELL DISTRIBUTION WIDTH-CV 16.1 % (11.5-14.5)
[2018-07-27 07:57] LABS: HEMATOCRIT 29.7 % (37.0-47.0); HEMOGLOBIN 9.8 g/dl (12.5-16.0); MEAN CORPUSCULAR HEMOGLOBIN 32 pg (27.0-31.0)
[2018-07-27 08:16] LABS: BAND 1 % (0-10); LYMPHOCYTE 4 % (20.0-51.0); METAMYELOCYTE 1 % (0-0); NEUTROPHILS 92 % (42.0-75.2); PLATELET ESTIMATE NORMAL (NORMAL)
[2018-07-27 08:54] VITALS: BP 117/65; PULSE 99; TEMP 97.4
[2018-07-27] MEDS ORDERED: LEVAQUIN 750MG750 M1 PO (10:32)
[2018-07-27] MEDS ORDERED: MAG-G500 MG PO (10:34)
[2018-07-27] MEDS ORDERED: PREDNISONE20 MG PO (10:36)
== END 2018-07-27 15:53 | DRG 871 ==
LOC: COL.ER 19:59 → MEDICAL 21:40 → ICU 07-24 13:07 → MEDICAL 07-25 20:42
PROVIDERS: Emergency Medicine; Internal Medicine Pulmonary Disease; Nurse Practitioner Family; Physician Assistant
PROC: 0W9B3ZX Drainage of Left Pleural Cavity, Percutaneous Approach, Diagnostic (ICD-10-PCS; principal; 2018-07-25)
PROC: 0W9B3ZZ Drainage of Left Pleural Cavity, Percutaneous Approach (ICD-10-PCS; 2018-07-25)
DX: A41.9 Sepsis, unspecified organism (principal); J13 Pneumonia due to Streptococcus pneumoniae; J96.01 Acute respiratory failure with hypoxia; J96.02 Acute respiratory failure with hypercapnia; R65.21 Severe sepsis with septic shock; Z66 Do not resuscitate; J91.8 Pleural effusion in other conditions classified elsewhere; C34.12 Malignant neoplasm of upper lobe, left bronchus or lung; C79.31 Secondary malignant neoplasm of brain; J98.11 Atelectasis; I10 Essential (primary) hypertension; J44.9 Chronic obstructive pulmonary disease, unspecified; E78.5 Hyperlipidemia, unspecified; F17.210 Nicotine dependence, cigarettes, uncomplicated; M79.7 Fibromyalgia; S72.141D Displaced intertrochanteric fracture of right femur, subsequent encounter for closed fracture with routine healing; E87.6 Hypokalemia; E83.42 Hypomagnesemia; E83.39 Other disorders of phosphorus metabolism; D50.9 Iron deficiency anemia, unspecified; G89.29 Other chronic pain; I48.91 Unspecified atrial fibrillation; F41.8 Other specified anxiety disorders
CPT/HCPCS: OP; 99222-AI; 99232-AI; C1751; G8978-GP; G8979-GP; J1650; J1956; J2543; J2930; J3370; J3475; J3480; J7030; J7040; J7050; Q9967

== ENCOUNTER 2018-10-22 16:24 | Inpatient (IN) | payer MEDICARE, MEDICAID ==
[~2018-10-22] VITALS: Ht 160 cm; Wt 76.4 kg
[2018-10-22] VITALS (99 sets, daily range): BP systolic 95; BP diastolic 62; PULSE 95; TEMP 97.9; O2SAT 92–98
[~2018-10-22 16:24] MED LIST changes: +ASPERCREME1 EACH TP; -ASPERCREME85G TP; +DESYREL 50MG50 MG PO; +K-TAB20 PO; +LEVAQUIN 750MG750 M1 PO; +LIPITOR20 MG PO; +MAG-G500 MG PO; +ROXICODONE 55 MG/TAB PO; +RT ALBUTER2.5 MG/0.5 IH; +SILTUSSIN DM PO; +ZITHROMAX500 M2 PO
[2018-10-22 16:59] LABS: ARTERIAL BLD GAS O2 SATURATION 95.7 % (92-100); ARTERIAL BLD GAS TCO2 CT 22.8; ARTERIAL BLOOD GAS BASE EXCESS -2.9 (-2-2); ARTERIAL BLOOD GAS HCO3 21.7 meq/L (22-26); ARTERIAL BLOOD GAS PCO2 36.9 mmHg (35-45); ARTERIAL BLOOD GAS PO2 84.9 mmHg (80-100); ARTERIAL BLOOD GAS pH 7.39 (7.35-7.45)
[2018-10-22 17:03] LABS: BASO % 0.2 % (0.0-2.0); EOS # 0.1 (0.0-0.7); EOS % 0.6 % (0-4.0); GRAN # 7.8 (1.4-6.5); GRAN % 82.6 % (42.2-75.2); HEMOGLOBIN 12.2 g/dl (12.5-16.0); LYMPH # 0.7 (1.2-3.4); LYMPH % 7.8 % (20.0-51.0); MEAN CELL VOLUME 93 fl (80.0-100.0); MEAN CORPUSCULAR HEMOGLOBIN 32 pg (27.0-31.0); MEAN CORPUSCULAR HGB CONC 35 g/dl (33.0-37.0); MEAN PLATELET VOLUME 9.8 fl (7.4-10.4); MONO # 0.8 (0.1-0.6); MONO % 8.2 % (1.7-9.3); PLATELET COUNT 269 K/mm3 (130-400); REDCELL DISTRIBUTION WIDTH-CV 16.3 % (11.5-14.5)
[2018-10-22 17:09] LABS: HEMATOCRIT 35.2 % (37.0-47.0)
[2018-10-22 17:10] LABS: COLLECTION METHOD CATHETER
[2018-10-22 17:16] LABS: ALANINE AMINOTRANSFERASE 49 U/L (9-52); ALBUMIN 3.6 gm/dL (3.5-5.0); ALKALINE PHOSPHATASE 324 U/L (50-136); ANION GAP 13 mmol/L (7-16); AST,SGOT 135 U/L (15-37); BILIRUBIN,TOTAL 1.4 mg/dL (0.0-1.0); BLOOD UREA NITROGEN 13 mg/dL (7-17); C-REACTIVE PROTEIN 5.5 mg/dL (0.0-0.9); CARBON DIOXIDE 22 mmol/L (22-30); CHLORIDE 95 mmol/L (98-107); CREATININE, serum 0.69 mg/dL (0.52-1.25); GLUCOSE 87 mg/dL (74-106); LIPASE 324 U/L (23-300); SODIUM 130 mmol/L (137-145); TOTAL PROTEIN 6.3 gm/dL (6.4-8.2)
[2018-10-22 17:19] LABS: CALCIUM 13.5 mg/dL (8.4-10.2); POTASSIUM 2.7 mmol/L (3.4-5.0)
[2018-10-22 17:25] LABS: TROPONIN-I < 0.012 ng/mL (0.000-0.035)
[2018-10-22 17:25] LABS: HYALINE CAST >12 /lpf; MUCOUS Present /lpf; PH 5 (5-8); URINE APPEARANCE Hazy; URINE BACTERIA None Seen /hpf; URINE BILIRUBIN Positive (NEGATIVE); URINE BLOOD Negative (NEGATIVE); URINE COLOR Amber; URINE GLUCOSE Negative (NEGATIVE); URINE KETONE 1+ (NEGATIVE); URINE LEUKOCYTE ESTERASE Negative (NEGATIVE); URINE NITRATE Negative (NEGATIVE); URINE PROTEIN(semi-quant) 1+ (NEGATIVE); URINE UROBILINOGEN >=4.0 mg/dL (NEGATIVE)
[2018-10-22 18:53] LABS: MAGNESIUM 1.5 mg/dL (1.6-2.3)
[2018-10-23] VITALS (785 sets, daily range): BP systolic 71–126; BP diastolic 36–98; PULSE 90–114; TEMP 97.6–98.3; O2SAT 76–100
--- NOTE | 2018-10-23 01:47 | NUR ---
PT ALERT BUT ONLY ORIENTED TO SELF, POOR HISTORIAN BUT FOLLOW COMMANDS.
--- NOTE | 2018-10-23 03:10 | NUR ---
1939 - RECEIVED REPORT FROM DARREN WARD. 1999 - PT ARRIVED VIA STRETCHER ESCORTED BY NURSING STAFF, VAUGHN BUT ONLY ORIENTED TO SELF. 2129 - MORATAYA PLACED PER ORDER, DRAINING CLEAR YELLOW URINE. 2244 - PT'S BP AT 70-80'S, ILIA CLAIM REPRESENTATIVE NOTIFIED AND ORDERED FLUID BOLUS OF 1L NS. - PT'S BP STILL AT 76/45 DESPITE BOLUS, ILIA CLAIM REPRESENTATIVE NOTIFIED WELL AND ORDERED NS OF 500 ML BOLUS, WAS GIVEN AND BROUGHT PT'S BP TO 90-100'S.
[2018-10-23 03:14] LABS: ALBUMIN 2.5 gm/dL (3.5-5.0); BILIRUBIN,TOTAL 0.9 mg/dL (0.0-1.0); CALCIUM 10.5 mg/dL (8.4-10.2); CREATININE, serum 0.49 mg/dL (0.52-1.25); MAGNESIUM 1.6 mg/dL (1.6-2.3); POTASSIUM 3.6 mmol/L (3.4-5.0); TOTAL PROTEIN 4.7 gm/dL (6.4-8.2)
[2018-10-23 05:41] LABS: BASO % 0.1 % (0.0-2.0); EOS % 0.1 % (0-4.0); GRAN % 82.4 % (42.2-75.2); LYMPH # 0.6 (1.2-3.4); LYMPH % 8.7 % (20.0-51.0); MEAN CELL VOLUME 95 fl (80.0-100.0); MEAN CORPUSCULAR HGB CONC 34 g/dl (33.0-37.0); MEAN PLATELET VOLUME 9.7 fl (7.4-10.4); MONO # 0.6 (0.1-0.6); PLATELET COUNT 194 K/mm3 (130-400); RED BLOOD COUNT 3.01 M/mm3 (4.10-5.30); REDCELL DISTRIBUTION WIDTH-CV 17.1 % (11.5-14.5)
[2018-10-23 05:42] LABS: HEMATOCRIT 28.5 % (37.0-47.0); HEMOGLOBIN 9.6 g/dl (12.5-16.0); MEAN CORPUSCULAR HEMOGLOBIN 32 pg (27.0-31.0)
[2018-10-23 05:53] LABS: ALBUMIN 2.6 gm/dL (3.5-5.0); BILIRUBIN,TOTAL 0.8 mg/dL (0.0-1.0); CALCIUM 10.5 mg/dL (8.4-10.2); CREATININE, serum 0.46 mg/dL (0.52-1.25); MAGNESIUM 1.6 mg/dL (1.6-2.3); POTASSIUM 3.4 mmol/L (3.4-5.0); TOTAL PROTEIN 4.8 gm/dL (6.4-8.2)
--- NOTE | 2018-10-23 07:40 | NUR ---
Patient is hypotensive, blood pressure 75/42 at 0700. DARREN Trejo, calls Dr. Patel for medication orders. Levophed started at this time.
--- NOTE | 2018-10-23 07:50 | NUR ---
Bedside report received from DARREN Trejo. Care of patient assumed at this time.
--- NOTE | 2018-10-23 07:55 | NUR ---
Sepsis protocol initiated for patient. Blood pressure improves quickly after levophed initiated. Will closely monitor.
[2018-10-23 08:15] LABS: CALCIUM 10.4 mg/dL (8.4-10.2); CREATININE, serum 0.45 mg/dL (0.52-1.25); POTASSIUM 3.3 mmol/L (3.4-5.0)
[2018-10-23 08:22] LABS: SALICYLATE < 1.0 mg/dL
--- NOTE | 2018-10-23 08:30 | NUR ---
Patient assessment complete. Patient is resting in bed, appears to be agitated. Patient follows instructions poorly, and seems unable to understand why she should not pull at IVs. Patient removed her left hand IV this morning while this nurse was with another patient. Patient's abdomen features areas of firmness that the patient indicates are painful. Patient's blood pressure increased this morning following administration of levophed. Capillary refill remains <3 seconds in fingers and toes. Will continue to monitor.
[2018-10-23 08:34] LABS: TROPONIN-I < 0.012 ng/mL (0.000-0.035)
[2018-10-23 11:10] LABS: ARTERIAL BLD GAS O2 SATURATION 90.5 % (92-100); ARTERIAL BLD GAS TCO2 CT 21.3; ARTERIAL BLOOD GAS BASE EXCESS -3.9 (-2-2); ARTERIAL BLOOD GAS HCO3 20.3 meq/L (22-26); ARTERIAL BLOOD GAS PCO2 33.8 mmHg (35-45); ARTERIAL BLOOD GAS PO2 59.6 mmHg (80-100)
--- NOTE | 2018-10-23 12:00 | NUR ---
Patient assessment complete. Patient resting in bed, is restless and often agitated. Patient pulls at lines, frequently unhooking blood pressure cuff and pulling at IVs. Patient remains in contact precautions at this time. Patient having liquid stools. Will continue to montior.
--- NOTE | 2018-10-23 13:43 | NUR ---
SW met with patient about discharge planning. Patient lives at [facility]. Patient's PCP is Dr oHrton and she obtains prescriptions from [facility]. Patient uses a wheelchair for mobility and oxygen. Patient's DPOA is her daughter, Roxie, and a copy is in EMR. SW attempted to contact Roxie about discharge plan. SW left a message.
--- NOTE | 2018-10-23 16:00 | NUR ---
Patient assessment complete. Patient is sleeping at this time. Patient's blood pressure has decreased while patient sleeps. Levophed restarted at 0.3 mcg/kg/min. Will monitor closely.
--- NOTE | 2018-10-23 18:15 | NUR ---
Enter patient's room to find left arm PICC line has been removed. Patient denies having done this. PICC line intact at 44 cm. STEVEN Riggins, notified.
--- NOTE | 2018-10-23 19:10 | NUR ---
Bedside report given to DARREN Trejo.
[2018-10-23 19:34] LABS: COLLECTION METHOD CATHETER
[2018-10-23 19:45] LABS: MUCOUS Present /lpf; PH 5 (5-8); SQUAMOUS EPITHELIAL 0-2 /hpf; URINE APPEARANCE Clear; URINE BACTERIA Rare /hpf; URINE BILIRUBIN Negative (NEGATIVE); URINE BLOOD 3+ (NEGATIVE); URINE COLOR Yellow; URINE GLUCOSE Negative (NEGATIVE); URINE KETONE Trace (NEGATIVE); URINE LEUKOCYTE ESTERASE Negative (NEGATIVE); URINE NITRATE Negative (NEGATIVE); URINE PROTEIN(semi-quant) Negative (NEGATIVE); URINE RBC >50 /hpf; URINE UROBILINOGEN Negative (NEGATIVE); URINE WBC 0-2 /hpf
[2018-10-24] VITALS (546 sets, daily range): BP systolic 76–116; BP diastolic 41–83; PULSE 93–108; TEMP 97.8–99; O2SAT 73–100
[2018-10-24] MEDS ORDERED: VITAMIN D 50,1.25 MG PO (02:12)
[2018-10-24] MEDS ORDERED: MULTI VITAMINS1 TAB PO (02:14)
[2018-10-24] MEDS ORDERED: LEVEMIR100 U/ML SQ (02:18)
[2018-10-24] MEDS ORDERED: LEXAPRO 10MG10 MG PO (02:19)
[2018-10-24] MEDS ORDERED: LASIX 40MG TABL40 MG PO (02:22)
[2018-10-24] MEDS ORDERED: ULTRAM 50MG TAB50 MG PO (02:24)
[2018-10-24] MEDS ORDERED: NYAMYC100000 U/G TP (02:26)
[2018-10-24] MEDS ORDERED: HUMALOG100 U/ML SQ (02:28)
[2018-10-24] MEDS ORDERED: ZOFRAN ODT4 MG PO (02:29)
[2018-10-24] MEDS ORDERED: NORVASC 10MG10 MG PO (02:31)
[2018-10-24] MEDS ORDERED: COREG12.5 MG PO (02:33)
[2018-10-24] MEDS ORDERED: ISOCHRON40 MG PO (02:34)
[2018-10-24] MEDS ORDERED: NATURAL IRON65 MG PO (02:36)
[2018-10-24] MEDS ORDERED: D3-5050000 IU PO (02:38)
[2018-10-24] MEDS ORDERED: NEURONTIN300 MG/CAP PO (03:12)
[2018-10-24] MEDS ORDERED: MELATONIN5 M1 PO (03:13)
[2018-10-24] MEDS ORDERED: DESYREL 50MG50 MG PO (03:14)
[2018-10-24] MEDS ORDERED: LIPITOR20 MG PO (03:15)
[2018-10-24] MEDS ORDERED: PROZAC 20MG20 MG PO (03:16)
[2018-10-24] MEDS ORDERED: SYNTHROID0.1 MG/TAB PO (03:17)
[2018-10-24] MEDS ORDERED: LIDODERM 5% PATC1 EA TP (03:18)
[2018-10-24] MEDS ORDERED: MAGNESIUM500 MG PO (03:20)
[2018-10-24] MEDS ORDERED: NORCO 325 MG-101 TAB PO (03:23)
[2018-10-24] MEDS ORDERED: PHENERGAN 25 TA25 MG PO (03:24)
[2018-10-24] MEDS ORDERED: GOOD NEIGH1200 MG/15 PO (03:25)
[2018-10-24] MEDS ORDERED: LOMOTIL 0.025 M1 TAB PO (03:26)
[2018-10-24 05:29] LABS: ARTERIAL BLD GAS O2 SATURATION 95.9 % (92-100); ARTERIAL BLD GAS TCO2 CT 18.4; ARTERIAL BLOOD GAS BASE EXCESS -6.7 (-2-2); ARTERIAL BLOOD GAS HCO3 17.5 meq/L (22-26); ARTERIAL BLOOD GAS PCO2 30.6 mmHg (35-45); ARTERIAL BLOOD GAS PO2 88.6 mmHg (80-100); ARTERIAL BLOOD GAS pH 7.38 (7.35-7.45)
[2018-10-24 06:05] LABS: HEMOGLOBIN 10.2 g/dl (12.5-16.0); MEAN CELL VOLUME 96 fl (80.0-100.0); MEAN CORPUSCULAR HEMOGLOBIN 32 pg (27.0-31.0); MEAN CORPUSCULAR HGB CONC 33 g/dl (33.0-37.0); MEAN PLATELET VOLUME 9.9 fl (7.4-10.4); PLATELET COUNT 247 K/mm3 (130-400); RED BLOOD COUNT 3.22 M/mm3 (4.10-5.30); REDCELL DISTRIBUTION WIDTH-CV 17.3 % (11.5-14.5)
[2018-10-24 06:10] LABS: HEMATOCRIT 30.8 % (37.0-47.0)
[2018-10-24 06:15] LABS: ALBUMIN 2.7 gm/dL (3.5-5.0); CALCIUM 10.2 mg/dL (8.4-10.2); CREATININE, serum 0.41 mg/dL (0.52-1.25)
[2018-10-24 06:18] LABS: POTASSIUM 2.8 mmol/L (3.4-5.0)
[2018-10-24 07:28] LABS: HYPOCHROMIA 1+; NEUTROPHILS 98 % (42.0-75.2); PLATELET ESTIMATE NORMAL (NORMAL); TOXIC GRANULATION PRESENT
--- NOTE | 2018-10-24 07:30 | NUR ---
Report received from Maya BANKS and care resumed.
--- NOTE | 2018-10-24 08:20 | NUR ---
Dr Olivo in to see pt at this time.
[2018-10-24 08:49] LABS: BILIRUBIN,DIRECT 0.7 mg/dL (0.0-0.4)
[2018-10-24 08:53] LABS: BILIRUBIN UNCONJUGATED 0.3 mg/dL (0.0-1.1)
--- NOTE | 2018-10-24 09:25 | NUR ---
Dr Thompson in to see pt at this time.
--- NOTE | 2018-10-24 11:10 | NUR ---
Pt getting PICC placed at this time.
--- NOTE | 2018-10-24 14:44 | NUR ---
SW attempted to contact patient's daughter, Roxie about discharge plan. SW unable to speak with her but left a message.
--- NOTE | 2018-10-24 15:09 | NUR ---
Pt returned from CT scan at this time and placed back on monitor.
--- NOTE | 2018-10-24 19:06 | NUR ---
Received a phone call from lilly, pt's daughter requesting an update and stating that she and her family had talked regarding pt's plan of care in regards to the phone call from Dr Patel earlier in the day. Asked daughter to clarify as I had not been present for the conversation. She started talkin about plan of care with ICU 2. Explained that Dr had mistakenly called about wrong pt. Gave lilly an update on her mom and she states understanding. Dr Patel was notified of this.
--- NOTE | 2018-10-24 19:40 | NUR ---
Bedside report received from Renee BANKS. Pt resting in bed at this time.
--- NOTE | 2018-10-24 19:45 | NUR ---
Report given to Anika BANKS and care transfered.
[2018-10-25] VITALS (117 sets, daily range): BP systolic 87–102; BP diastolic 7–77; PULSE 99–118; TEMP 97.6–98.5; O2SAT 82–100
[2018-10-25 05:51] LABS: MEAN CELL VOLUME 97 fl (80.0-100.0); MEAN CORPUSCULAR HGB CONC 33 g/dl (33.0-37.0); PLATELET COUNT 161 K/mm3 (130-400); RED BLOOD COUNT 2.94 M/mm3 (4.10-5.30); REDCELL DISTRIBUTION WIDTH-CV 18.2 % (11.5-14.5)
[2018-10-25 05:55] LABS: HEMATOCRIT 28.6 % (37.0-47.0); HEMOGLOBIN 9.5 g/dl (12.5-16.0); MEAN CORPUSCULAR HEMOGLOBIN 32 pg (27.0-31.0)
[2018-10-25 06:05] LABS: ALBUMIN 2.4 gm/dL (3.5-5.0); BILIRUBIN,TOTAL 1.3 mg/dL (0.0-1.0); CALCIUM 9.9 mg/dL (8.4-10.2); CREATININE, serum 0.46 mg/dL (0.52-1.25); MAGNESIUM 1.2 mg/dL (1.6-2.3); POTASSIUM 4.4 mmol/L (3.4-5.0); TOTAL PROTEIN 4.5 gm/dL (6.4-8.2)
[2018-10-25 06:58] LABS: BAND 8 % (0-10); LYMPHOCYTE 1 % (20.0-51.0); NEUTROPHILS 90 % (42.0-75.2); OVALOCYTES 1+; PLATELET ESTIMATE NORMAL (NORMAL); TARGET CELLS 1+
--- NOTE | 2018-10-25 07:20 | NUR ---
Report provided to Renee BANKS. Pt sitting on bed marte at this time. Staff assisted pt with clean up and barrier cream application.
--- NOTE | 2018-10-25 08:53 | NUR ---
SW attempted to contact patient's daughter/DOPA, Roxie. ALLEN unable to speak with her because she is a teacher. ALLEN left a message asking Roxie to return the call as soon as possible.
[2018-10-25 10:08] LABS: INR 1.8 (0.8-3.0); PROTHROMBIN TIME 20.4 SECONDS (9.7-12.8)
--- NOTE | 2018-10-25 11:48 | NUR ---
Critical vanco level received from lab. Archuleta, pharmacist notified.
--- NOTE | 2018-10-25 14:22 | NUR ---
Dr Patel in to see pt at discussed pt's worsening condition and spread of cancer. Will follow up with pallative care and Dr Cruz as well.
--- NOTE | 2018-10-25 15:18 | NUR ---
Dr Mcneil called for update on pt. No new orders at this time.
--- NOTE | 2018-10-25 16:17 | NUR ---
ALLEN and [facility] Care Nurse, Chandrika, spoke with patient's daughter, Roxie, via phone about patient. Chandrika discussed hospice care if that is they direction patient and family would like to proceed. Roxie reports she would like to speak with her brothers before making any decisions. Roxie will contact them and call back tomorrow morning.
--- NOTE | 2018-10-25 16:21 | NUR ---
Met with physician and nursing staff and then spoke with pt and her daughter by phone. Daughter does realize that her mother has cancer and is not doing well. Her recent scans indicated the cancer is advancing, tumors are larger, fluid is present more around the left lung, diffuse bone disease is documented. Pt was talking with this nurse and her daughter and in one sentence denied having pain and in the next sentence told her daughter her pain was severe and we wouldn't give her anything for it. Pt denies having cancer and states she will be fine in a couple of days. I also spoke with the daughter myself and advised that her mother was removing her own oxygen, had unscrewed her IV tubing just in the short time I was out of the room. Advised daughter that thoarcentesis was planned to help removed fluid around lung and help her mother breathe easier. Advised that her blood pressures have been running low and so with her mother's stated goal of "keeping on fighting this" we were limited in what we could give her for pain. Roxie reports that she will contact her brother, who is in [place], and wants to talk with her siblings before reaching a decision. We did talk about the differences between comfort care and supportive care and even aggressive care. Daughter reports she will call back after having those conversation and speak either to the charge nurse or myself. Contact information was provided. Primary nurse, Renee, was notified.
[2018-10-25 17:02] LABS: PLEURAL FLUID RBC 15000 /mm3 (0-0); PLEURAL FLUID WBC 284 /mm3
[2018-10-25 17:08] LABS: PLEURAL FLUID APPEARANCE HAZY; PLEURAL FLUID COLOR PINK
[2018-10-25 18:00] LABS: GLUCOSE,PLEURAL FLUID 60 mg/dL
[2018-10-25 18:27] LABS: TOTAL PROTEIN,PLEURAL FLUID < 2.0 gm/dL
--- NOTE | 2018-10-25 19:29 | NUR ---
Report given to Maya BANKS and care transfered.
[2018-10-26] VITALS (742 sets, daily range): BP systolic 91–105; BP diastolic 52–64; PULSE 103–116; TEMP 97.4–98.7; O2SAT 73–100
[2018-10-26 05:35] LABS: BASO % 0.1 % (0.0-2.0); EOS % 0.4 % (0-4.0); GRAN # 7.7 (1.4-6.5); GRAN % 85.7 % (42.2-75.2); LYMPH # 0.5 (1.2-3.4); MEAN CELL VOLUME 98 fl (80.0-100.0); MEAN CORPUSCULAR HGB CONC 33 g/dl (33.0-37.0); MEAN PLATELET VOLUME 10.1 fl (7.4-10.4); MONO # 0.6 (0.1-0.6); MONO % 7.2 % (1.7-9.3); PLATELET COUNT 148 K/mm3 (130-400); RED BLOOD COUNT 2.86 M/mm3 (4.10-5.30); REDCELL DISTRIBUTION WIDTH-CV 18.6 % (11.5-14.5)
[2018-10-26 05:43] LABS: HEMATOCRIT 28.1 % (37.0-47.0); HEMOGLOBIN 9.2 g/dl (12.5-16.0); MEAN CORPUSCULAR HEMOGLOBIN 32 pg (27.0-31.0)
[2018-10-26 05:50] LABS: ALBUMIN 2.4 gm/dL (3.5-5.0); BILIRUBIN,TOTAL 1.8 mg/dL (0.0-1.0); CALCIUM 9.1 mg/dL (8.4-10.2); CREATININE, serum 0.52 mg/dL (0.52-1.25); POTASSIUM 3.9 mmol/L (3.4-5.0); TOTAL PROTEIN 4.5 gm/dL (6.4-8.2)
[2018-10-26 06:05] LABS: BAND 3 % (0-10); LYMPHOCYTE 4 % (20.0-51.0); NEUTROPHILS 90 % (42.0-75.2); PLATELET ESTIMATE DECREASED (NORMAL)
[2018-10-26 06:08] LABS: HYPOCHROMIA 1+
[2018-10-26 06:09] LABS: ANISOCYTOSIS 2+; MAGNESIUM 1.8 mg/dL (1.6-2.3)
[2018-10-26 06:11] LABS: OVALOCYTES 2+
--- NOTE | 2018-10-26 07:40 | NUR ---
PT TAKEN FOR VQ SCAN BY NUC MED STAFF VIA WHEELCHAIR. HEPARIN GTT TRANSFERRED WITH PATIENT.
--- NOTE | 2018-10-26 08:20 | NUR ---
PICC intact left upper arm with scant amount of dried reddish drainage noted. with sterile technique left upper arm dressing change done with insertion site cleansed with chloraprep x 1, chlorhexidine impregnated disk applied, skin prep, stat lock, and tegaderm applied. no further drainage noted. no signs or symptoms of IV complications noted. no concerns voiced. re-wrapped with manoj to protect catheter.
--- NOTE | 2018-10-26 08:20 | NUR ---
DR ANDRE STATES TO GIVE PT 500ML LR BOLUS AND THEN INCREASE IVF TO 150 ML/HR
[2018-10-26 10:12] LABS: INR 2.2 (0.8-3.0); PROTHROMBIN TIME 24.6 SECONDS (9.7-12.8)
--- NOTE | 2018-10-26 14:27 | NUR ---
SW attempted to contact patient's daughter to follow up about yesterdays conversation with estefany Cobos care nurse. SW left message.
--- NOTE | 2018-10-26 14:56 | NUR ---
Spoke with daughter,Roxie by phone this afternoon. She is making arrangements to come from [place] to see her mother tomorrow and spend time talking with her about the seriousness of her illness, its implications, and set up plans for her ongoing care. I did give her Dr Cruz's office number, as she requested to be able to hear from him about her mother's condition. At this time she is asking that we respect her mother's DNR status but continue to support her with her care until Roxie can arrive. She has not been able to talk with her siblings directly but has left messages and will act as her mother's decision maker per the DPOA-HC. I will try to see Roxie on Monday before she leaves. She did add that it is her mother's belief system that she does have an donnie looking out for her. Her mother has been very prone to depression and has little interaction with her adult children. She has expressed great interest in her grandchildren though and I believe Roxie is bringing her children to visit.
--- NOTE | 2018-10-26 15:45 | NUR ---
PT C/O NAUSEA AND BEGAN WRETCHING.
[2018-10-27] VITALS (666 sets, daily range): BP systolic 91–116; BP diastolic 50–65; PULSE 111–119; TEMP 97.5–98.8; O2SAT 48–100
[2018-10-27 05:06] LABS: MEAN CELL VOLUME 97 fl (80.0-100.0); MEAN CORPUSCULAR HGB CONC 33 g/dl (33.0-37.0); MEAN PLATELET VOLUME 9.9 fl (7.4-10.4); PLATELET COUNT 111 K/mm3 (130-400); RED BLOOD COUNT 2.74 M/mm3 (4.10-5.30); REDCELL DISTRIBUTION WIDTH-CV 19.2 % (11.5-14.5)
[2018-10-27 05:10] LABS: HEMATOCRIT 26.7 % (37.0-47.0); HEMOGLOBIN 8.9 g/dl (12.5-16.0); MEAN CORPUSCULAR HEMOGLOBIN 32 pg (27.0-31.0)
[2018-10-27 05:12] LABS: INR 2.1 (0.8-3.0); PROTHROMBIN TIME 24.4 SECONDS (9.7-12.8)
[2018-10-27 05:20] LABS: ALBUMIN 2.3 gm/dL (3.5-5.0); CALCIUM 8.7 mg/dL (8.4-10.2); CREATININE, serum 0.44 mg/dL (0.52-1.25); MAGNESIUM 1.7 mg/dL (1.6-2.3); TOTAL PROTEIN 4.3 gm/dL (6.4-8.2)
--- NOTE | 2018-10-27 07:00 | NUR ---
Pt AOx1, able to state: name and partial birthday. Disoriented to situation, city and date - pt reoriented - unsuccessful in repeating back. PICC line and Portacath in place with no attempts to pull at lines. Catheter Securement device in place with manoj bandage wrap in place hide tube to prevent pulling at catheter. Pt crying out at times stating that dogs are in the room with her, reoriented again. Call light within reach - unable to correctly use - other staff on unit made aware of increased risk to fall.
--- NOTE | 2018-10-27 08:41 | NUR ---
Pt stating nausea
[2018-10-27 14:52] LABS: BAND 1 % (0-10); LYMPHOCYTE 4 % (20.0-51.0); NEUTROPHILS 94 % (42.0-75.2); PLATELET ESTIMATE NORMAL (NORMAL)
[2018-10-27 14:53] LABS: ANISOCYTOSIS 1+
[2018-10-28] VITALS (748 sets, daily range): BP systolic 87–95; BP diastolic 50–56; PULSE 101–107; TEMP 97.8; O2SAT 90–100
[2018-10-28 05:57] LABS: BASO % 0.1 % (0.0-2.0); EOS % 0.1 % (0-4.0); GRAN % 88.6 % (42.2-75.2); LYMPH # 0.4 (1.2-3.4); LYMPH % 4.1 % (20.0-51.0); MEAN CELL VOLUME 100 fl (80.0-100.0); MEAN CORPUSCULAR HGB CONC 32 g/dl (33.0-37.0); MEAN PLATELET VOLUME 9.8 fl (7.4-10.4); MONO # 0.6 (0.1-0.6); MONO % 6.1 % (1.7-9.3); PLATELET COUNT 87 K/mm3 (130-400); RED BLOOD COUNT 2.56 M/mm3 (4.10-5.30); REDCELL DISTRIBUTION WIDTH-CV 19.9 % (11.5-14.5)
[2018-10-28 05:59] LABS: HEMATOCRIT 25.6 % (37.0-47.0); HEMOGLOBIN 8.2 g/dl (12.5-16.0); MEAN CORPUSCULAR HEMOGLOBIN 32 pg (27.0-31.0)
[2018-10-28 06:10] LABS: CALCIUM 8.5 mg/dL (8.4-10.2); CREATININE, serum 0.62 mg/dL (0.52-1.25); POTASSIUM 4.1 mmol/L (3.4-5.0)
--- NOTE | 2018-10-28 12:31 | NUR ---
Family meeting took place in conference room with Roxie (daughter-DPOA) and MD Geovani and MD Lars. Transitioning to comfort care measures, Palliative Care Basket requested from [facility], Irrigation System Operator electronic warfare technician phoned and left message per family request. 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
--- NOTE | 2018-10-28 20:30 | NUR ---
PT OPENING EYES, BUT NOT VERBALLY RESPONDING. PT ON COMFORT CARE.
--- NOTE | 2018-10-28 23:53 | NUR ---
2350: PT AGONAL BREATHING 2353: TIME OF BY TWO NURSES, SORTING AND FOLDING SUPERVISOR DARREN BENITEZ AND DARREN GUERRERO.
--- NOTE | 2018-10-29 00:34 | NUR ---
I received a call from ICU at approximately 11:25. The nurse said they could not get in touch with the on-call watch hairspring assembler and asked if I could come in. The family was requesting watch hairspring assembler support. The patient had by the time I got here so I prayed with the family and provided spiritual care.
== END 2018-10-29 03:53 | disposition expired | DRG 871 ==
LOC: COL.ER 16:24 → ICU 18:36
PROVIDERS: Emergency Medicine; Family Medicine; Hospitalist; Internal Medicine; Internal Medicine Pulmonary Disease; Nurse Practitioner; Nurse Practitioner Family; Radiology Diagnostic Radiology; ADMIT Internal Medicine
PROC: 0W9B3ZX Drainage of Left Pleural Cavity, Percutaneous Approach, Diagnostic (ICD-10-PCS; principal; 2018-10-25)
DX: A41.9 Sepsis, unspecified organism (principal); R65.21 Severe sepsis with septic shock; G93.41 Metabolic encephalopathy; Z51.5 Encounter for palliative care; Z66 Do not resuscitate; E87.1 Hypo-osmolality and hyponatremia; J96.11 Chronic respiratory failure with hypoxia; E44.0 Moderate protein-calorie malnutrition; I50.32 Chronic diastolic (congestive) heart failure; C34.12 Malignant neoplasm of upper lobe, left bronchus or lung; C78.7 Secondary malignant neoplasm of liver and intrahepatic bile duct; C79.31 Secondary malignant neoplasm of brain; J90 Pleural effusion, not elsewhere classified; E78.5 Hyperlipidemia, unspecified; M79.7 Fibromyalgia; J44.9 Chronic obstructive pulmonary disease, unspecified; E83.52 Hypercalcemia; E86.0 Dehydration; E87.6 Hypokalemia; F32.9 Major depressive disorder, single episode, unspecified; E83.42 Hypomagnesemia; D64.9 Anemia, unspecified; F17.210 Nicotine dependence, cigarettes, uncomplicated
CPT/HCPCS: 99223-AI; 99232-AI; 99233-AI; A4216; C1751; C1894; J0456; J0692; J1650; J1720; J2270; J2405; J2430; J2550; J3370; J3475; J3480; J7030; J7040; J7050; J7060; J7120; Q9967